=== PATIENT | male | born 1945 | race Caucasian/White ===

== ENCOUNTER 2019-04-15 10:01 | Observation (INO) | payer MEDICARE, SELFPAY ==
[2019-04-15] VITALS (11 sets, daily range): BP systolic 110–150; BP diastolic 58–90; PULSE 64–107; RESP 14–18; TEMP 36.3–37.1; O2SAT 95–100; BMI 29.6
--- NOTE | ~2019-04-15 | US_ITS ---
EXAMINATION: US carotid duplex BI DATE: 04/16/2019 11:09 INDICATION: Near syncope. Carotid atherosclerosis. TECHNIQUE: Grayscale, color Doppler, and pulsed Doppler images of the cervical carotid arteries were obtained. The degree of vessel stenosis is placed in one of the following categories: normal, <50%, 5 0-69%, >=70% but less than near-occlusion, near-occlusion, or total occlusion. Note that percent sten osis relative to normal distal artery lumen diameter is indirectly measured from velocity measurement s as described by Evans, et al. Radiology 2003; 229:340-346. COMPARISON: None. FINDINGS: RIGHT: The right common carotid artery (CCA) peak systolic velocity (PSV) is 78 cm/s. The right internal car otid artery (ICA) PSV is 144 cm/s. The right ICA end-diastolic velocity (EDV) is 41 cm/s. The right I CA/CCA PSV ratio is 1.8. Grayscale and color Doppler images yield an estimate of 50-69% diameter redu ction from plaque in the ICA. The external carotid artery (ECA) PSV is 108 cm/s. There is antegrade f low in the right vertebral artery. LEFT: The left CCA PSV is 98 cm/s. The left ICA PSV is 130 cm/s. The left ICA EDV is 27 cm/s. The left ICA/ CCA PSV ratio is 1.3. Grayscale and color Doppler images including secondary Doppler criteria yield a n estimate of <50% diameter reduction from plaque in the ICA. The ECA PSV is 98 cm/s. There is antegr elsa flow in the left vertebral artery. IMPRESSION: 1. 50-69% stenosis in the right internal carotid artery. 2. <50% stenosis in the left internal carotid artery. Reviewed, dictated and finalized at location A. INUOUS WASHER OPERATOR
--- NOTE | 2019-04-15 10:01 | ED.DIZZY ---
HPI - Dizziness General Chief Complaint: Syncope Stated Complaint: NEAR SYNCOPE Time Seen by Provider: 04/15/19 10:22 Source: patient Mode of arrival: EMS Limitations: no limitations History of Present Illness HPI Narrative: A 74 y/o male presents to the ED, via EMS, with c/o lightheadedness and a near syncopal episode. Pt states he was standing at [employer] when he didn't feel real good so he sat down. Pt then started getting really warm and diaphoretic so he laid down in the pew and then people started fanning me and saying that I looked white as a sheet. Pt was given chocolate milk and his symptoms alleviated after this. Per family, this episode lasted about 10 minutes. Pt denies syncope but states he felt like he was going to pass out. Pt ate breakfast at 7:00 AM this morning. Pt has a history of similar episodes stating that he thinks it his due to low BS but he has never had an official diagnoses. Pt's first episode occurred 7 years ago when he had a syncopal episode on an airplane. Pt saw his PCP when he returned to [facility] and had his BP medication dosage reduced and told to monitor his BS. Pt is not on any medication for DM. Pt's most recent episode before today occurred about 2 years ago. Pt notes that he had a stress test done a long time ago. He denies smoking and alcohol use. Severity: similar to previous episodes Description: near-syncope History of similar symptoms: Yes Related Data Home Medications Medication Instructions Recorded Confirmed lisinopril 40 mg PO DAILY 02/20/19 Cbd Oil 15 mg PO HS 04/15/19 aspirin 81 mg PO DAILY 04/15/19 cholecalciferol (vitamin D3) 1,000 unit PO DAILY 04/15/19 [Vitamin D3] tramadol 50 mg PO DAILY 04/15/19 Allergies Allergy/AdvReac Type Severity Reaction Status Date / Time Penicillins Allergy Unknown Unknown Verified 04/15/19 10:17 Review of Systems Review of Systems: All systems reviewed & are unremarkable except as noted in HPI and below Constitutional: Comments: Reports: lightheadedness Cardiovascular: Comments: Reports: diaphoresis Neurologic: Denies syncope [facility] Past Medical History Medical History (Updated 04/15/19 @ 12:34 by Janay Rodriguez MD) History of tremor HTN (hypertension) Kidney stones Melena Rectal polyp Seasonal allergies Sleep apnea Surgical History Surgical History H/O nasal septoplasty Hx of appendectomy Hx of tonsillectomy Family History Family History Mother Family history of Alzheimer's disease Father Family history of heart disease in male family member before age 55 Social History Social History Smoking status: Never smoker Second hand tobacco smoke exposure: No Alcohol intake: never Gender identity (if verbalized by the patient): Male Comments PCP: Dr. Childress Exam Narrative: Exam Narrative: General appearance: Well-developed, well-nourished Skin: Normal color Head: Normocephalic, nontraumatic Eyes: Clear conjunctiva ENT: Oropharynx normal, ears normal, nose normal Neck: Supple, nontender Chest and respiratory: Airway patent, no respiratory distress, no accessory muscle use Heart: Regular rate/rhythm Abdomen: Soft, nontender, no organomegaly, quiet bowel sounds Vascular: Normal peripheral pulses, normal capillary refill. Musculoskeletal: Normal range of motion, nontender back Neurologic: Alert and oriented ?3, DENTURE WAXER is normal as tested, no gross motor deficit Course Course Emergency Course: Resolved Consultations Consultation #1: Discussed case with Valerie and accepted admi
--- NOTE | 2019-04-15 10:18 | ECG_ITS ---
Measurements Intervals Sandy Rate: 64 P: -10 IA: 215 QRS: 9 QRSD: 118 T: 83 QT: 427 QTc: 442 Interpretive Statements SINUS RHYTHM WITH FIRST DEGREE AV BLOCK INTRAVENTRICULAR CONDUCTION DELAY BORDERLINE ST-T WAVE ABNORMALITY- LATERAL LEADS ABNORMAL ECG Electronically Signed On 04-15-2019 12:42:32 BANK RECONCILIATOR by Dexter Hubbard D.O.
[2019-04-15 10:29] LABS: Basophils Absolute Auto 0.1 K/mm3 (0.0-0.1); Eosinophils Absolute Auto 0.3 K/mm3 (0-0.3); Hematocrit 46.2 % (42.0-52.0); Hemoglobin 15.5 g/dL (14.0-18.0); Immature Granulocyte Absolute 0.03 K/mm3 (0.00-0.031); Immature Granulocyte Percent A 0.5 % (0-0.5); Lymphocytes Absolute Auto 1.08 K/mm3 (0.9-3.2); Lymphocytes Percent Auto 17.5 % (18.3-44.2); Mean Corpuscular HGB Conc 33.5 g/dl (32-36); Mean Corpuscular Hemoglobin 31.3 pg (26-34); Mean Corpuscular Volume 93.3 fl (80-100); Mean Platelet Volume 10.8 fl (7.4-10.4); Monocytes Absolute Auto 0.5 K/mm3 (0.1-0.6); Monocytes Percent Auto 8.3 % (2.6-8.5); Neutrophils Absolute Auto 4.2 K/mm3 (1.3-6.7); Neutrophils Percent Auto 67.7 % (45.5-73.1); Platelet Count Result 164 k/mm3 (150-375); Red Blood Count 4.95 M/mm3 (4.6-6.20); Red Cell Distribution Width 12.7 % (11.5-14.5); White Blood Count 6.2 K/mm3 (4.5-10.0)
[2019-04-15 10:41] LABS: Blood Urea Nitrogen 22 mg/dL (9-20); Calcium 10.1 mg/dL (8.4-10.2); Carbon Dioxide 26 mmol/L (22-30); Chloride 102 mmol/L (98-107); Estimated CRCL calculation 48 ml/min; Estimated Glomerular Filt Rate 59; Glucose 212 mg/dL (75-110); Potassium 4.8 mmol/L (3.4-5.0); Sodium 141 mmol/L (137-145)
--- NOTE | 2019-04-15 13:55 | PC.NURSE ---
This patient, Nithin Foster, was admitted to [address] [facility] Surg Room 313-01. Patient/family oriented to hospital policies and general routines including ID bracelet, bed and alarms, visiting hours, pain management, procedures, bathroom and other care routines, personal items, smoking policy, room service/diet, and visiting hours. Valuables list has been completed. Information on how to activate the Rapid Response Team has been discussed. Patient/Family are encouraged to report perceived risks to care and to ask questions if they do not understand what they are told or what they should do.
--- NOTE | 2019-04-15 18:53 | PM.IMHP ---
H&P: HPI History of Present Illness Chief complaint: near syncope Narrative: Nithin Foster is a 74 year old male who 8 2 pieces of bread this morning prior to going to congregational. The patient stated he has a history of diabetes but is mostly diet controlled. The patient stated he checked his blood sugar before he went to congregational and it was in the 150s. The patient made it through most of congregational services and they were on the last saw when the patient was standing up and he just felt like he was going to pass out. Patient was diaphoretic but did not have any chest pain. The patient has had a cardiac back in 2009 which required no intervention at the time. He had a stress test in 2009 which was normal with the EF of 47%. He also had a Holter monitor in 2013 which showed 1600 PVCs was 42 couplets and 1 ventricular triplet in 20 for hours. The patient recently saw the heart group for clearance for left knee arthroscopic surgery. He was cleared at home. While the patient was in congregational he felt like he was going to pass out so he sat down and then he laid down in the pew. The preacher decided to call EMS because the patient could not get out of the congregational pew. The patient was given a small glass of chocolate milk in the congregational and we came to ER his blood sugar was 212. Creatinine was normal. Was read as sinus rhythm with first-degree AV block and a right bundle branch block which is old. Date of service 04/15/2019 Review of Systems Review of Systems: All systems reviewed & are unremarkable except as noted in HPI and below Constitutional: Constitutional: Reports as per HPI and Reports no additional constitutional complaints Comments: No dizziness today but was diaphoretic. Eyes: Eyes: Reports as per HPI and Reports no additional eye complaints Comments: No problems now but had a history of eye cancer and had chemo eyedrops. ENT: Reports system reviewed and no additional complaints, except as documented and Reports Normal hearing present Cardiovascular: Cardiovascular: Reports no additional cardiovascular complaints Respiratory: Respiratory: Reports no additional respiratory complaints and Reports no additional respiratory complaints Gastrointestinal: Gastrointestinal: Reports as per HPI and Reports no additional gastrointestinal complaints Musculoskeletal: Musculoskeletal: Reports no additional musculoskeletal complaints Integumentary/Breasts: Skin/Breast: Reports system reviewed and no additional complaints, except as docu and Reports as per HPI Neurologic: Reports system reviewed and no additional complaints, except as documented, Reports as per HPI and Reports Normal hearing present Psychiatric: Psychiatric: Reports no additional psychiatric complaints and Reports as per HPI Endocrine: Endocrine: Reports no additional endocrine complaints Comments: Diet-controlled diabetes Hematologic/Lymphatic: Hematologic/Lymphatic: Reports no additional hematologic/lymphatic complaints Allergic/Immunologic: Allergic/Immunologic: Reports no additional allergic/immunologic complaints [facility] Past Medical History Medical History (Updated 04/15/19 @ 19:19 by Valerie Hammond NP) Asbestos exposure Bundle branch block Right Cancer of cornea Chemo eyedrops DM2 (diabetes mellitus, type 2) First degree AV block History of tremor HTN (hypertension) Kidney stones He passed on his own Melena Rectal polyp Polypectomy Seasonal allergies Surgical History Surgical History (Updated 04/15/19 @ 19:04 by Vlaerie Hammond NP) H/O cardiac catheterization 2010 the EF of 40-45% minimal luminal irregularities H/O nasal septoplasty Repair of left eye socket with a tube place H/O rectal polypectomy Hx of appendectomy Hx of tonsillectomy Status post arthroscopic surgery of left knee Family History Family History (Updated 04/15/19 @ 19:03 by Valerie Hammond NP) Mother Family history of Alzheimer's disease Father Family history of heart disease
[2019-04-15] MEDS: PROPRANOLOL HCL 40 MG TABLET PO (22:09)
[2019-04-15] MEDS: TRAMADOL HCL 50 MG TABLET PO (22:16)
[2019-04-15 22:22] LABS: Glucose Point of Care 142 (65-105)
[2019-04-16] VITALS (10 sets, daily range): BP systolic 114–140; BP diastolic 60–81; PULSE 67–90; RESP 18–20; TEMP 36.4–36.8; O2SAT 97–99
--- NOTE | 2019-04-16 | ECHO_ITS ---
Patient Info Name: Nithin Foster Age: 74 years : 1945 Gender: Male Ht: 69 in Wt: 200 lbs BSA: 2.12 m2 HR: 74 bpm BP: 120 / 68 mmHg Heart Rhythm: Sinus Arrhythmia Technical Quality: Good Exam Date: 04/16/2019 1:10 PM Exam Location: [facility] Pulmonary Patient Status: Inpatient Admit Date: 04/15/2019 Staff Ordering Physician: Valerie Hammond NP Psychology Intern: French Durbin RDCS Attending Provider: Jeniffer Loja PA-C Referring Physician: Stephany OLIVARES; Exam Type: CA echo dop color flow w con Study Info Indications I50.20 - Unspecified systolic (congestive) heart failure Complete two-dimensional, color flow and Doppler transthoracic echocardiogram is performed with contrast to opacify the left ventrical and to improve the deliniation of the left ventrical endocarial boarders. Strain analysis performed. Contrast/Agitated Saline Contrast/Ag. Saline: Definity Amount: 2.00 ml Administered By: Ivet Cash RN History/Risk Factors Near syncope; CAD, RBBB and AVB first degree, HTN. Summary 1. Borderline LV enlargement, normal wall thickness. Variable LV contractility, moderate LV systolic dysfunction, ejection fraction about 40%. Indeterminate diastolic dysfunction. Global longitudinal strain-GLS is abnormal at-13%. Normal structure of the valves. Unable to assess RVSP due to inadequate TR jet. Left Ventricle Left ventricular chamber dimension is normal. Left ventricular systolic function is moderately reduced, estimated at 35-40%. There is no increased left ventricular wall thickness. Left ventricular septal wall motion is normal. The left ventricular diastolic function is indeterminate. Global longitudinal strain is abnormal at -13 %. Right Ventricle Right ventricular chamber dimension is normal. Right ventricular systolic function is normal. Left Atria Left atrial chamber dimension is mildly enlarged. Right Atria Right atrial chamber dimension is normal. Aortic Valve The aortic valve is trileaflet. There is no aortic valve sclerosis. There is no aortic valve stenosis. There is no aortic valve regurgitation. Pulmonic Valve The pulmonic valve is normal. There is no pulmonic valve stenosis. There is trace pulmonic regurgitation. Mitral Valve The mitral valve has normal leaflets. There is no mitral valve stenosis. There is no mitral valve regurgitation. Tricuspid Valve The tricuspid valve leaflets are normal. There is no significant tricuspid valve stenosis. There is trace tricuspid valve regurgitation. Pericardium/Pleural The pericardium appears epicardial fat pad. There is no pericardial effusion. Aorta The aortic root size at the sinus of Valsalva is normal. The prox ascending aorta size is normal. Left Ventricular Outflow Tract Name Value Normal LVOT 2D LVOT Diameter 2.22 cm LVOT Doppler LVOT Peak Gradient 3 mmHg LVOT Mean Gradient 2 mmHg LVOT VTI 14.34 cm LVOT VTI/AV VTI Ratio
[2019-04-16 06:22] LABS: Hemoglobin A1C 7.1 % (<5.7)
[2019-04-16] MEDS: PROPRANOLOL HCL 40 MG TABLET PO (08:14)
[2019-04-16] MEDS: MELOXICAM 7.5 MG TABLET 15 MG PO (08:15)
[2019-04-16] MEDS: ASPIRIN 81 MG CHEWABLE TABLET PO (08:15)
[2019-04-16] MEDS: lisinopriL 20 MG TABLET 40 MG PO (08:15)
[2019-04-16] MEDS: CHOLECALCIFEROL 1,000 UNIT TABLET 1000 UNITS PO (08:16)
[2019-04-16 08:35] LABS: Alanine Aminotransferase 25 U/L (4-50); Albumin Level 3.9 g/dL (3.5-5.1); Alkaline Phosphatase 77 U/L (38-126); Aspartate Amino Transferase 23 U/L (17-59); Bilirubin,Total 0.7 mg/dL (0.2-1.3); Blood Urea Nitrogen 20 mg/dL (9-20); Calcium 9.5 mg/dL (8.4-10.2); Carbon Dioxide 26 mmol/L (22-30); Chloride 104 mmol/L (98-107); Estimated CRCL calculation 57 ml/min; Estimated Glomerular Filt Rate > 60; Glucose 169 mg/dL (75-110); Magnesium 1.8 mg/dL (1.6-2.3); Potassium 4.3 mmol/L (3.4-5.0); Sodium 141 mmol/L (137-145)
[2019-04-16 08:47] LABS: Thyroid Stimulating Hormone Reflex 0.982 uIU/mL (0.465-4.68)
[2019-04-16 09:39] LABS: Glucose Point of Care 188 (65-105)
[2019-04-16 12:59] LABS: Glucose Point of Care 138 (65-105)
[2019-04-16] MEDS: PERFLUTREN LIPID MICROSPHERES 1.5 ML VIAL DILUTED TO 10 ML TOTAL VOLUME IV PUSH (15:17)
[2019-04-16 17:47] LABS: Glucose Point of Care 150 (65-105)
--- NOTE | 2019-04-16 20:38 | PM.DS ---
DS: Diagnosis Admitting Diagnosis Admitting Diagnosis: Pre syncope Discharge Diagnosis (1) Near syncope: Code(s): R55 - Syncope and collapse Status: Acute Assessment and Plan: Date of Service 04/16/19: Mr. Foster is a pleasant 74yo M with history of hypertension and pre-diabetes who presented to the ED for evaluation after a near-syncopal episode at [employer]. He reported he was standing for a period of time during a song at [employer] when he began to feel light headed, so he laid down in the pew. His symptoms improved after lying for a few minutes and eating a snack. He denies loss of consciousness. He did not fall or hit his head. He noted that he has had similar episodes in the past, about once every year. At time of my exam, he reports he feels well and back at his baseline. Multiple studies were ordered at that time to include carotid dopplers, echocardiogram, and CT brain. EKG and cardiac telemetry showed mutliple PVCs, sometimes in couplets. He has seen Dr Benito in the past and has previously been evaluated with Holter monitoring. These PVCs, right bundle branch block, and 1st degree AV block have been documented in the past. He denies any chest pain or shortness of breath. He does feel these palpitations on a regular basis and has for years. Carotid dopplers showed 50-69% stenosis in the right internal carotid; < 50% stenosis in the left internal carotid artery. Explained these findings with the patient and instructed him to continue taking his 81mg ASA daily and follow up with Dr Childress regarding possibly starting statin therapy if necessary. Patient notes he was diagnosed with pre-diabetes and has not been on any medications for such. He noted that he sees an make up worker Dr Hugo Valera at [facility]. We discussed that his A1c was now 7.1 and a fasting blood sugar of 165 that he now may need to be on medications. He was agreeable to holding off on new medications at this time and discussing a plan with Dr Childress and Dr Valera at his upcoming appointments. Echocardiagram was performed but not read prior to discharge. CT brain was ordered in the morning but not able to be performed on day of discharge due to radiology scheduling. The patient was given the option to stay a second night in order to obtain his CT brain, or to discharge with orders to obtain his CT brain on an outpatient basis the following day. Mr. Foster opted to proceed with discharge since he was feeling quite well and would obtain his CT the following day, with instructions to follow up with Dr Childress. He was hemodynamically stable for discharge 04/16/19. The following results are noted after the patient's discharge: CT brain 04/17/19 - IMPRESSION: No acute intracranial findings; Chronic age related findings; Left maxillary, anterior ethmoid mucoperiosteal thickening and small amount of fluid in the left maxillary sinus. Echocardiogram 04/16/19 - SUMMARY: Borderline LV enlargement, normal wall thickness. Variable LV contractility, moderate LV systolic dysfunction, ejection fraction about 40%. Indeterminate diastolic dysfunction. Global longitudinal strain-GLS is abnormal at-13%. Normal structure of the valves. Unable to assess RVSP due to inadequate TR jet. (2) Bundle branch block: Code(s): I45.4 - Nonspecific intraventricular block Status: Chronic Assessment and Plan: Old, documented on an EKG from June 2018. No chest pain. Follow up with cardiology as needed. (3) First degree AV block: Code(s): I44.0 - Atrioventricular block, first degree Status: Chronic Assessment and Plan: Also documented on a prior EKG. (4) HTN (hypertension): Code(s): I10 - Essential (primary) hypertension Status: Chronic Assessment and Plan: His noted his blood pressure was low when EMS took it. Blood pressures stable here, no orthostasis
== END 2019-04-16 18:10 | disposition home or self-care (01) ==
LOC: ANHED 12:34 → ANH3MEDSUR 13:14
PROVIDERS: Hospitalist; Nurse Practitioner; Physician Assistant; Admitting Provider Family Medicine; Emergency Provider Emergency Medicine; PCP Family Medicine; Visit Provider Internal Medicine
DX: R55 Syncope and collapse (principal); I45.4 Nonspecific intraventricular block; I44.0 Atrioventricular block, first degree; I25.10 Atherosclerotic heart disease of native coronary artery without angina pectoris; I11.0 Hypertensive heart disease with heart failure; I50.20 Unspecified systolic (congestive) heart failure; E11.9 Type 2 diabetes mellitus without complications; I65.21 Occlusion and stenosis of right carotid artery; G89.29 Other chronic pain; M54.9 Dorsalgia, unspecified
CPT/HCPCS: 36415; 70450; 80048; 80053; 83036; 83735; 84443; 85025; 93005; 93880; 96374; 99285; A9270; C8929; G0378; Q9957

== ENCOUNTER 2019-04-17 14:12 | Outpatient (CLI) | payer MEDICARE, SELFPAY ==
--- NOTE | ~2019-04-17 | CT_ITS ---
EXAMINATION: CT brain wo con EXAM DATE: 04/17/2019 14:34 INDICATION: Syncope, collapse. TECHNIQUE: Spiral CT of the head was performed without contrast. Axial, coronal and sagittal images were reviewed. The dose-length product (DLP) for this examination was 605.33 mGy-cm. The exposure w as tailored according to patient size, and iterative reconstruction (ASIR) was used as additional dos e reduction technique. Comparison is made to prior examination from 11/10/2018. FINDINGS: There is no acute intraparenchymal hemorrhage. No evidence of intraparenchymal brain mass lesion. No evidence of acute infarction. Please note that initial head CT has limited sensitivity f or small or acute infarctions. There is mild periventricular and subcortical hypodensity, nonspecific but probably related to small vessel ischemic disease. There is moderate prominence of the sulci a nd ventricles related to cerebral atrophy. There is intracranial carotid arteriosclerosis. There a re no extra-axial collections. There is no mass effect or midline shift. The orbits are unremarkabl e. Soft tissue is unremarkable. There is mild to moderate left maxillary sinus mucoperiosteal thick ening and left anterior ethmoid mucoperiosteal thickening. Small amount of fluid in the left maxillar y sinus. IMPRESSION: 1. No acute intracranial findings. 2. Chronic age related findings. 3. Left maxillary, anterior ethmoid mucoperiosteal thickening, fluid as above. Reviewed, dictated and finalized at location A. OR TECHNICAL WRITER
== END 2019-04-17 14:13 | disposition home or self-care (01) ==
LOC: ANHIMG 14:14
PROVIDERS: PCP Family Medicine; Visit Provider Physician Assistant
DX: R55 Syncope and collapse (principal)
CPT/HCPCS: 70450

== ENCOUNTER → 2019-05-11 08:49 | Outpatient (CLI) | payer MEDICARE, SELFPAY ==
--- NOTE | ~2019-05-11 | CT_ITS ---
EXAMINATION: CT sinus wo con DATE: 05/11/2019 09:11 INDICATION: Recurrent pansinusitis TECHNIQUE: Computed tomography (CT) of the paranasal sinuses was performed without contrast. Iterativ e reconstruction technique was employed. Exam dose: 254.35 mGy-cm total exam DLP. COMPARISON: None FINDINGS: There is rightward bowing of the anterior portion of the nasal septum. The nasal turbinates are moderately prominent and relatively symmetric. Intralamellar cell of left middle nasal turbinate. Minimal hillary bullosa of both middle nasal turbinates. There is opacification of left maxillary ostium and extensive opacification of the left infundibulum. The right ostiomeatal complex is patent. There is prominent mucoperiosteal thickening of the left maxillary sinus. There are focal areas of so ft tissue thickening of the ethmoid air cells, left greater than right. The frontal sinuses and sphenoid sinuses and right maxillary sinus are normally developed and aerated . The mastoid air cells are normally developed and aerated. IMPRESSION: Rightward bowing of anterior nasal septum Intralamellar cell of left middle nasal turbinate; minimal hillary bullosa of both middle nasal turbin ates Opacified left maxillary ostium and partial opacification of left infundibulum Prominent mucoperiosteal thickening left maxillary sinus Minimal focal soft tissue thickening of the ethmoid air cells Reviewed, dictated and finalized at Location A. Reviewed, dictated and finalized at location A. IMPRESSION: Rightward bowing of anterior nasal septum Intralamellar cell of left middle nasal turbinate; minimal hillary bullosa of asher th middle nasal turbinates Opacified left maxillary ostium and partial opacification of left infundibulum Prominent mucoperiosteal thickening left maxillary sinus Minimal focal soft tissue thickening of the ethmoid air cells
== END ==
PROVIDERS: PCP Family Medicine; Visit Provider Otolaryngology
DX: J32.4 Chronic pansinusitis (principal)
CPT/HCPCS: 70486

== ENCOUNTER 2020-03-14 13:04 | Outpatient (CLI) | payer MEDICARE, SELFPAY ==
--- NOTE | ~2020-03-14 | US_ITS ---
EXAMINATION: US thyroid EXAM DATE: 03/14/2020 13:34 INDICATION: E04.9 - Nontoxic goiter, unspecified. TECHNIQUE: Multiple grayscale and Doppler images of the thyroid were obtained (by a technologist who performed the scan) and subsequently reviewed. Individual nodules and recommendations may be reporte d in accordance with TI-RADS system as designated by the 2017 ACR White Paper TI-RADS committee. The re is no prior study for comparison. FINDINGS: The right thyroid lobe measures 4.2 x 1.9 x 1.9 cm, the left measuring 4.6 x 1.9 x 1.8 cm. Mildly dif fusely heterogeneous thyroid echogenicity. There is a 3 mm right thyroid lobe nodule, not likely clin ically significant. IMPRESSION: Mild thyromegaly. Reviewed, dictated and finalized at location B. MANAGER IMPRESSION: Mild thyromegaly.
== END 2020-03-14 13:05 | disposition home or self-care (01) ==
LOC: ANHIMG 13:07
PROVIDERS: PCP Family Medicine; Visit Provider Physician Assistant Medical
DX: E04.9 Nontoxic goiter, unspecified (principal)
CPT/HCPCS: 76536

== ENCOUNTER 2020-03-25 10:38 | Outpatient (CLI) | payer MEDICARE, SELFPAY ==
--- NOTE | ~2020-03-25 | MR_ITS ---
EXAMINATION: MR brain/brain stem wo/w con DATE: 03/25/2020 11:29 INDICATION: Tremor, unspecified. TECHNIQUE: Magnetic resonance imaging (MRI) of the brain and brainstem was performed without and with 18 mL MultiHance intravenous contrast. Sequences included sagittal and axial T1-weighted FSE, axial diffusion-weighted FS EPI, axial T2*-weighted GRE, axial T2-weighted FLAIR Propeller, and axial T2-we ighted Propeller. Postcontrast sequences included axial and coronal T1-weighted FSE. Apparent diffusi on coefficient (ADC) maps were created. COMPARISON: Brain MRI 04/10/2014 FINDINGS: There is a 7 mm lesion of cortical enhancement in right frontoparietal region associated wi th a slightly larger area of increased T2-weighted signal intensity. There are scattered areas of non specific increased T2-weighted signal intensity in the cerebral white matter, which is within normal limits for the patient's age. There is no intracranial hemorrhage or acute infarct. The ventricles ar e normal in size. The orbits are normal. There is mild mucosal thickening in the ethmoid sinuses. The mastoid air cells are normal. IMPRESSION: 1. Enhancing lesion in right frontoparietal region, most likely a subacute infarct. Neoplasm such as metastatic disease is less likely. Consider brain MRI without and with contrast in 2 months. Reviewed, dictated and finalized at location A. RATOR OPERATOR IMPRESSION: 1. Enhancing lesion in right frontoparietal region, most likely a subacute infa rct. Neoplasm such as metastatic disease is less likely. Consider brain MRI wit hout and with contrast in 2 months.
[2020-03-25 11:10] LABS: Estimated Glomerular Filt Rate > 60
== END 2020-03-25 10:39 | disposition home or self-care (01) ==
PROVIDERS: PCP Family Medicine; Visit Provider Physician Assistant Medical
DX: R25.1 Tremor, unspecified (principal); F98.5 Adult onset fluency disorder; R55 Syncope and collapse; G93.9 Disorder of brain, unspecified
CPT/HCPCS: 70553; A9577

== ENCOUNTER 2020-04-17 10:30 | Outpatient (CLI) | payer MEDICARE, SELFPAY ==
--- NOTE | ~2020-04-17 | US_ITS ---
EXAMINATION: US carotid duplex BI DATE: 04/17/2020 11:17 INDICATION: Transient ischemic episode. Carotid atherosclerosis and stenosis. TECHNIQUE: Grayscale, color Doppler, and pulsed Doppler images of the cervical carotid arteries were obtained. The degree of vessel stenosis is placed in one of the following categories: normal, <50%, 5 0-69%, >=70% but less than near-occlusion, near-occlusion, or total occlusion. Note that percent sten osis relative to normal distal artery lumen diameter is indirectly measured from velocity measurement s as described by Evans, et al. Radiology 2003; [id number]:340-346. COMPARISON: 04/16/2019 FINDINGS: RIGHT: The right common carotid artery (CCA) peak systolic velocity (PSV) is 86 cm/s. The right internal car otid artery (ICA) PSV is 110 cm/s. The right ICA end-diastolic velocity (EDV) is 27 cm/s. The right I CA/CCA PSV ratio is 1.3. Grayscale images again demonstrate a visually 50-69% diameter reduction from plaque in the ICA. Peak systolic velocity measurements at the site of the earlier elevated velocitie s were unable to be obtained in the current study due to increased shadowing from the calcific plaque . The external carotid artery (ECA) PSV is 207 cm/s. There is antegrade flow in the right vertebral a rtery. LEFT: The left CCA PSV is 111 cm/s. The left ICA PSV is 108 cm/s. The left ICA EDV is 21 cm/s. The left ICA /CCA PSV ratio is 1.0. Grayscale and color Doppler images yield an estimate of <50% diameter reductio n from plaque in the ICA. The ECA PSV is 131 cm/s. There is antegrade flow in the left vertebral vamshi ry. IMPRESSION: 1. 50-69% stenosis in the right internal carotid artery. 2. <50% stenosis in the left internal carotid artery. Reviewed, dictated and finalized at location A. [employer]
== END 2020-04-17 10:31 | disposition home or self-care (01) ==
PROVIDERS: PCP Family Medicine; Visit Provider Physician Assistant Medical
DX: I65.23 Occlusion and stenosis of bilateral carotid arteries (principal)
CPT/HCPCS: 93880

== ENCOUNTER → 2020-06-13 01:38 | Outpatient (CLI) | payer MEDICARE, SELFPAY ==
[2020-06-13 19:39] LABS: SARS-CoV-2 RNA PCR Negative
== END ==
PROVIDERS: PCP Family Medicine; Visit Provider Otolaryngology
DX: Z01.812 Encounter for preprocedural laboratory examination (principal); Z20.822 Contact with and (suspected) exposure to COVID-19
CPT/HCPCS: C9803; U0003; U0005

== ENCOUNTER 2020-06-16 01:01 | Day surgery (SDC) | payer MEDICARE, SELFPAY ==
[2020-06-05 13:11] VITALS: BMI 29.5
[2020-06-16] VITALS (9 sets, daily range): BP systolic 142–155; BP diastolic 80–90; PULSE 67–73; RESP 12–20; TEMP 36.1–36.6; O2SAT 94–100; BMI 27.1
--- NOTE | 2020-06-16 06:46 | WPDANESEPPF ---
Anes - Initial Pre Proc Eval Procedure: Operation Date: 06/16/20 08:15 Proposed Procedures p Image Guided Partial Bilateral Ethmoidectomy, Possible Bilateral Total Ethmoidectomy, Possible Bilateral Sphenoidotomy, Bilateral Maxillary Antrostomy, Bilateral Turbinate Reduction, Left Adelita Bullosa Reduction, - Nelson Montes MD s Septoplasty - Nelson Montes MD Date/Time: 06/16/20 06:46 Surgeon: Nelson Montes MD Pre Op Diagnosis: acute recurrent pansinusitis Patient Data Age: 75 Gender: M Height: 1.75 m Weight: 83.2 kg Last Vital Signs Temp 36.1 C L 06/16/20 06:40 Pulse 71 06/16/20 06:40 Resp 18 06/16/20 06:40 BP 149/81 H 06/16/20 06:40 Pulse Ox 99 06/16/20 06:40 Allergies Allergy/AdvReac Type Severity Reaction Status Date / Time Penicillins Allergy Unknown N/V? Verified 06/16/20 06:26 levofloxacin [From Levaquin] AdvReac Intermediate Cramping Verified 06/16/20 06:26 of the Muscles Home Medications Medication Instructions Recorded Confirmed Type lisinopril 40 mg PO QAM 02/20/19 06/16/20 History Cbd Oil 15 mg PO HS 04/15/19 06/16/20 History aspirin 81 mg PO DAILY 04/15/19 06/16/20 History cholecalciferol (vitamin D3) 1,000 unit PO DAILY 04/15/19 06/16/20 History [Vitamin D3] acetaminophen 325 mg tablet 650 mg PO Q6H tablet 04/23/19 06/16/20 History clopidogrel 75 mg tablet 75 mg PO DAILY #30 tablet 03/25/20 06/16/20 Rx atorvastatin 40 mg PO QAM 06/05/20 06/16/20 History diphenhydramine HCl [Benadryl 25 mg PO HS 06/05/20 06/16/20 History Allergy] propranolol 40 mg BID 06/05/20 06/16/20 History Patient hx anesthesia problems: none Family hx anesthesia problems: none PMFSH Past Medical History Medical History (Updated 06/16/20 @ 06:[address]er MD) Asbestos exposure BMI 27.0-27.9,adult Bundle branch block Right Cancer of cornea Chemo eyedrops Carotid stenosis, right Dilated cardiomyopathy DM2 (diabetes mellitus, type 2) First degree AV block History of tremor HTN (hypertension) Kidney stones He passed on his own Melena Rectal polyp Polypectomy Seasonal allergies Surgical History Surgical History H/O cardiac catheterization 2009 the EF of 40-45% minimal luminal irregularities H/O nasal septoplasty Repair of left eye socket with a tube place H/O rectal polypectomy Hx of appendectomy Hx of tonsillectomy Status post arthroscopic surgery of left knee Family History Family History Mother Family history of Alzheimer's disease Father Family history of heart disease in male family member before age 55 Asbestos exposure Cancer Sibling No problems noted. Social History Social History Social History: The patient is a full code and his Mini is his durable power deputy prosecuting attorney for healthcare. Patient has 2 children. He is retired from working in the [employer] and a [employer]. Smoking status: Never smoker Second hand tobacco smoke exposure: No Alcohol intake: current Alcohol use details: STATES MAYBE 1-2 DRINKS/YEAR Substance use: current Other substance usage details: CBD at night Last use: 04/14/2019 Living arrangements: with family Additional occupation/education comments: [employer] Gender identity (if verbalized by the patient): Male Spiritual care concerns: No Agree to blood products: Yes Anes - Eval Final PreProcedure Day of Procedure 06/16/20 06:46 Patient weight: overweight Heart: regular rate and rhythm Lungs: clear to auscultation and normal air movement Airway: Mallampati scale class II Neurological: alert and oriented Last oral intake: >/= 8 hours ASA classification: IV Emergent: no Anesthetic plan: proceed Anesthesia type and monitoring: general ETT Informed Consent: The patient's anesthet
[2020-06-16] MEDS: OXYMETAZOLINE HCL 0.05% NAS 15 ML BTL (*BKC) 1 SPRAY NASAL (06:59)
--- NOTE | 2020-06-16 07:24 | PM.IMHP ---
H&P: HPI History of Present Illness Date/Time: 06/16/20 07:24 Chief Complaint: chronic sinusitis, deviated septum Review of Systems Review of Systems: All systems reviewed & are unremarkable except as noted in HPI and below [facility] Past Medical History Medical History Asbestos exposure BMI 27.0-27.9,adult Bundle branch block Right Cancer of cornea Chemo eyedrops Carotid stenosis, right Dilated cardiomyopathy DM2 (diabetes mellitus, type 2) First degree AV block History of tremor HTN (hypertension) Kidney stones He passed on his own Melena Rectal polyp Polypectomy Seasonal allergies Surgical History Surgical History H/O cardiac catheterization 2010 the EF of 40-45% minimal luminal irregularities H/O nasal septoplasty Repair of left eye socket with a tube place H/O rectal polypectomy Hx of appendectomy Hx of tonsillectomy Status post arthroscopic surgery of left knee Family History Family History Mother Family history of Alzheimer's disease Father Family history of heart disease in male family member before age 55 Asbestos exposure Cancer Sibling No problems noted. Social History Social History Social History: The patient is a full code and his Mini is his durable power assistant county attorney for healthcare. Patient has 2 children. 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 Smoking status: Never smoker Second hand tobacco smoke exposure: No Alcohol intake: current Alcohol use details: STATES MAYBE 1-2 DRINKS/YEAR Substance use: current Other substance usage details: CBD at night Last use: 04/14/2019 Living arrangements: with family Additional occupation/education comments: [employer] Gender identity (if verbalized by the patient): Male Spiritual care concerns: No Agree to blood products: Yes Meds Home Medications and Allergies Home Medications Medication Instructions Recorded Confirmed Type lisinopril 40 mg PO QAM 02/20/19 06/16/20 History Cbd Oil 15 mg PO HS 04/15/19 06/16/20 History aspirin 81 mg PO DAILY 04/15/19 06/16/20 History cholecalciferol (vitamin D3) 1,000 unit PO DAILY 04/15/19 06/16/20 History [Vitamin D3] acetaminophen 325 mg tablet 650 mg PO Q6H tablet 04/23/19 06/16/20 History clopidogrel 75 mg tablet 75 mg PO DAILY #30 tablet 03/25/20 06/16/20 Rx atorvastatin 40 mg PO QAM 06/05/20 06/16/20 History diphenhydramine HCl [Benadryl 25 mg PO HS 06/05/20 06/16/20 History Allergy] propranolol 40 mg BID 06/05/20 06/16/20 History Allergies Allergy/AdvReac Type Severity Reaction Status Date / Time Penicillins Allergy Unknown N/V? Verified 06/16/20 06:26 levofloxacin [From Levaquin] AdvReac Intermediate Cramping Verified 06/16/20 06:26 of the Muscles Vital Signs Vital Signs - 24 hr 06/16/20 06:40 Temperature 36.1 C L Pulse Rate 71 Respiratory Rate 18 Blood Pressure 149/81 H Pulse Oximetry 99 Exam Narrative: Exam Narrative: deviated septu, chronic sinusitis, turbinate hypertrophy, rest of exam wnl Assessment and Plan Assessment and plan (1) Chronic sinusitis of both maxillary sinuses: Code(s): J32.0 - Chronic maxillary sinusitis Status: Acute Assessment and Plan: Brian is here for septoplasty, turbinoplasty and maxillary antrostomy, ethmoidectomy for chronic sinusitis and deviated septum. Refer to outpt H&P for full details. r/b/a reviewed and he consents to surgery.
--- NOTE | 2020-06-16 07:25 | SUR.PREOP ---
SPOKE TO DR PELAEZ REGARDING PLAVIX. PT LAST DOSE WAS TUESDAY, 06/12 ALONG WITH ASA 81MG. OK TO PROCEED
[2020-06-16] MEDS: LACTATED RINGERS 1,000 ML 30 ML IV CONT ×2 (07:46→09:32)
--- NOTE | 2020-06-16 07:49 | WPDHPUPDATE1 ---
History and Physical Update Update Date/Time: 06/16/20 07:49 History and Physical has been reviewed, including an updated exam of the patient. There are NO changes in the patient's condition. Risks, benefits, and alternatives have been discussed and questions answered. Patient agrees to proceed with procedure.
[2020-06-16] MEDS: ceFAZolin 2 GM/D5W 50 ML 2 GM/50 ML BAG IVPB (08:08)
[2020-06-16] MEDS: LIDO 1%/EPINEPHRINE 1:100,000 50 ML VIAL INFILTRATE (08:17)
--- NOTE | 2020-06-16 09:25 | PM.PROC ---
Procedure Note - Detailed Date of procedure: 06/16/20 Pre-op diagnosis: acute recurrent pansinusitis Post-op diagnosis: same (sinusitis, deviated septum) Procedure performed: Septoplasty, bilateral inferior turbinoplasty, maxillary antrostomy, total ethmoidectomy, bilateral hillary bullosectomy Description of procedure: On the date of procedure the patient was met in the preoperative area and risk and benefits of the procedure reviewed with the patient as documented in the H&P and they elected to proceed with surgery. Patient was brought back to the operating room by the anesthesia team and underwent general endotracheal anesthesia. Once an adequate plane of anesthesia was obtained a timeout was performed to assure the patient identification the patient here to be performed were correct. They were.The patient was then prepped and draped in the normal fashion for endoscopic sinus surgery. The diffusion image guidance system was calibrated and used for the entire case. Afrin-soaked pledgets were placed in the nasal cavities bilaterally. The entire case was performed under endoscopic visualization. The right side was narrowed due to septal deviation.? Thus, septoplasty was required.? A left hemitransfixion incision was made in the left caudal septum and a mucoperichondrial flap was elevated in the usual fashion. The flap was elevated under endoscopic visualization and the remainder of the case was performed with endoscopic assistance. Using a D-knife, an incision was made through the cartilaginous septum with care to preserve the appropriate caudal and dorsal ?L-strut? of cartilage. The cartilage was then disarticulated from the bony-cartilaginous junction and the deviated cartilage was removed. Further deviated bone and cartilage was removed from the maxillary crest and posterior bony septum with care to avoid injury to the mucoperichondrial flap using a combination of dissection and Jalen-Brenda forceps. Once this was completed, the hemitransfixion incision was closed using simple interrupted 4-0 chromic suture. A quilting stitch to reapproximate the mucoperichondrial flaps was then placed using 4-0 plain gut suture on a Russ needle. Next, 1% lidocaine with 1:100,000 epinephrine was then injected into the root of the middle turbinate and lateral nasal wall on the right side. The middle turbinate was medialized and the osteomeatal complex was identified with a solo probe. There was hillary bullosa that was reduced using a freer elevator. Using a 90 degree backbiter, the uncinate process was reflected anteriorly and removed using a combination of sharp and powered dissection. The maxillary antrostomy was then created and widened by identifying the natural ostia and opening the sinus with straight tan-cut forceps, backbiter, and microdebrider. Continuing with the microdebrider, the anterior ethmoid bulla was opened. Careful dissection was carried out posteriorly, through the basal lamella and posterior ethmoid cells until the sphenoid rostrum was identified. The remaining bone fragments were removed with appropriate curved instruments and microdebrider.? Next, the left maxillary antrostomy, hillary bullosectomy and total ethmoidectomy were carried out in identical fashion with similar findings.? No clinical evidence of CSF throughout the case.? With all sinuses opened and no remaining polyp disease appreciated, novapore packing was placed in the ethmoid acvities bilaterally. Hemostasis was ensured. Lastly, the bilateral inferior turbinates were reduced submucosally using 2mm microdebrider and then outfractured with a sayer elevator. This significantly opened the airway. Young splints were then placed to secure the septum in the midline.? At this point, the procedure was concluded. Care the patient was transferred back to the anesthesia team and the patient was awoke in the operating room and transferred back to the PACU in stable condition. Nelson Montes M.D. Anesthesia: [facility]
== END 2020-06-16 11:40 | disposition home or self-care (01) ==
PROVIDERS: PCP Family Medicine; Visit Provider Otolaryngology
PROC: (CPT 30520; principal; 2020-06-16 08:15)
PROC: (CPT 30520; 2020-06-16 08:15)
DX: J01.41 Acute recurrent pansinusitis (principal); J32.0 Chronic maxillary sinusitis; J34.2 Deviated nasal septum; I45.10 Unspecified right bundle-branch block; E11.9 Type 2 diabetes mellitus without complications; I44.0 Atrioventricular block, first degree; Z87.19 Personal history of other diseases of the digestive system; I65.21 Occlusion and stenosis of right carotid artery; I10 Essential (primary) hypertension
CPT/HCPCS: 30520; 30140; 31255; 31256; 31240; 61782; A9270; C9803; J0330; J0690; J1100; J2405; J2704; J3010; J7120; U0003; U0005

== ENCOUNTER 2020-08-14 12:35 | Outpatient (CLI) | payer MEDICARE, SELFPAY ==
--- NOTE | ~2020-08-14 | MR_ITS ---
EXAMINATION: MR brain/brain stem wo/w con EXAM DATE: 08/14/2020 14:44 INDICATION: G93.9 - Disorder of brain, unspecified. Right frontal lobe lesion. Tremor in right hand. History stroke. TECHNIQUE: Magnetic resonance imaging (MRI) of the brain/brain stem obtained without contrast. Sagit avril T1, axial diffusion, gradient echo (T2*), T1, T2, FLAIR sequences obtained. Patient was then inj ected with 18 cc intravenous Multihance contrast. Axial and coronal postcontrast T1 weighted sequence s obtained. Comparison is made to prior examination from 03/25/2020. FINDINGS: There are no areas of restricted diffusion to suggest acute infarction. There is no acute hemorrhage seen on the T2*, a hemosiderin sensitive sequence. No intraparenchymal brain mass lesion. Small old left parietal lobe cortical infarction, in region of previously seen enhancement, expecte d evolution. No abnormal enhancement today. There is mild periventricular and subcortical T2/FLAIR si gnal hyperintensity, nonspecific but probably related to small vessel ischemic disease (microangiopat hy). There is mild to moderate prominence of the sulci and ventricles related to cerebral atrophy. There are no extra-axial collections. Flow voids are seen in the cerebral arteries on the T2-weigh ben sequences consistent with their expected patency. The orbits are unremarkable. Soft tissue is u nremarkable. IMPRESSION: 1. 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 2. Chronic age related findings. Reviewed, dictated and finalized at location B.
--- NOTE | ~2020-08-14 | US_ITS ---
EXAMINATION: US carotid duplex BI DATE: 08/14/2020 13:31 INDICATION: Carotid stenosis TECHNIQUE: Grayscale, color Doppler, and pulsed Doppler images of the cervical carotid arteries were obtained. The degree of vessel stenosis is placed in one of the following categories: normal, <50%, 5 0-69%, >=70% but less than near-occlusion, near-occlusion, or total occlusion. Note that percent sten osis relative to normal distal artery lumen diameter is indirectly measured from velocity measurement s as described by Evans, et al. Radiology 2003; 229:340-346. Notes: Normal: Peak systolic velocity <125 centimeters/sec and no plaque <50%. Peak systolic velocity <125 ( EDV <40; ICA/CCA PSV ratio <2.0; used these factors only a tandem lesions or low cardiac output or co ntralateral disease) 50-69 %: PSV 125-230 (EDV 40-100; ratio 2-4) >= 70% but less than near occlusion: PSV greater than 230 (EDV > 100; ratio> 4.0) Near Occlusion: PSV that is variable; markedly narrowed lumen Occlusion: Absent flow on color/spectral Doppler and no lumen on rothman scale. COMPARISON: Ultrasound dated 04/17/2020. FINDINGS: RIGHT: The right common carotid artery (CCA) peak systolic velocity (PSV) is 78 cm/s. The right internal car otid artery (ICA) PSV is 132 cm/s. The right ICA end-diastolic velocity (EDV) is 39 cm/s. The right I CA/CCA PSV ratio is 1.7. The external carotid artery (ECA) PSV is 1:30 cm/s. There is antegrade flow in the right vertebral artery. LEFT: The left CCA PSV is 112 cm/s. The left ICA PSV is 90 cm/s. The left ICA EDV is 122 cm/s. The left ICA /CCA PSV ratio is 1.1. The ECA PSV is 71 cm/s. There is antegrade flow in the left vertebral artery. IMPRESSION: 1. 50-69% stenosis in the right internal carotid artery by sonographic criteria. 2. Less than 50% stenosis in the left internal carotid artery by sonographic criteria. Reviewed, dictated and finalized at location A. IMPRESSION: 1. 50-69% stenosis in the right internal carotid artery by sonographic criteria . 2. Less than 50% stenosis in the left internal carotid artery by sonographic cr iteria.
[2020-08-14 13:43] LABS: Estimated Glomerular Filt Rate 54
== END 2020-08-14 12:36 | disposition home or self-care (01) ==
PROVIDERS: PCP Family Medicine; Visit Provider Psychiatry & Neurology Neurology
DX: R09.89 Other specified symptoms and signs involving the circulatory and respiratory systems (principal); Z86.73 Personal history of transient ischemic attack (TIA), and cerebral infarction without residual deficits; I65.23 Occlusion and stenosis of bilateral carotid arteries
CPT/HCPCS: 70553; 93880; A9577

== ENCOUNTER → 2020-09-19 06:48 | Outpatient (CLI) | payer MEDICARE, SELFPAY ==
[2020-09-19 17:52] LABS: SARS-CoV-2 RNA PCR Negative
== END ==
PROVIDERS: PCP Family Medicine; Visit Provider Physician Assistant Medical
DX: R68.89 Other general symptoms and signs (principal); Z20.822 Contact with and (suspected) exposure to COVID-19
CPT/HCPCS: C9803; U0003; U0005

== ENCOUNTER 2022-02-08 08:31 | Outpatient (CLI) | payer MEDICARE, SELFPAY ==
--- NOTE | ~2022-02-08 | MR_ITS ---
EXAMINATION: MR lumbar spine wo con DATE: 02/08/2022 09:32 INDICATION: Chronic low back pain. TECHNIQUE: Magnetic resonance imaging (MRI) of the lumbar spine was performed without intravenous con trast. Sequences included sagittal T2-weighted FSE, sagittal T2-weighted FS FSE, sagittal T1-weighted FSE, and axial T2-weighted FSE. COMPARISON: Lumbar spine MRI 07/06/2016 FINDINGS: Bone alignment is normal. There is mild chronic anterior wedging of T12 and L1 vertebral asher dies. There is mildly decreased disc height at L5-S1. The distal spinal cord signal intensity is norm al. The conus medullaris is at L1. The following disc levels are specifically discussed: L1-L2: The disc is bulging. There is mild bilateral facet joint osteoarthritis. There is mild bilater al neural foraminal stenosis. There is mild central canal stenosis. L2-L3: The disc is bulging. There is mild bilateral facet joint osteoarthritis. There is mild bilater al neural foraminal stenosis. There is mild central canal stenosis. L3-L4: The disc is bulging and has an annular fissure. There is mild bilateral facet joint osteoarthr itis. There is moderate bilateral neural foraminal stenosis. There is mild central canal stenosis. L4-L5: The disc is bulging and has an annular fissure. There is mild bilateral facet joint osteoarthr itis. There is mild right and moderate left neural foraminal stenosis. There is mild central canal st enosis. L5-S1: The disc is bulging with superimposed left central extrusion. There is mild bilateral facet tommy int osteoarthritis. There is moderate bilateral neural foraminal stenosis. There is mild central kristin l stenosis. IMPRESSION: 1. Moderate lumbar spondylosis, stable from 07/06/2016. Reviewed, dictated and finalized at location A. [employer]
== END 2022-02-08 08:32 | disposition home or self-care (01) ==
PROVIDERS: PCP Physician Assistant; Visit Provider Physician Assistant
DX: M47.896 Other spondylosis, lumbar region (principal)
CPT/HCPCS: 72148

== ENCOUNTER 2022-06-18 16:07 | Outpatient (CLI) | payer MEDICARE, SELFPAY ==
--- NOTE | ~2022-06-18 | MR_ITS ---
MRI of the cervical spine Clinical History: Cord compression Technique: Axial T2-weighted and gradient images, and sagittal T1-weighted, T2-weighted, and STIR rafat ges were acquired. Findings: There is no fracture or subluxation of the cervical spine. Vertebral bodies maintain normal height. No bone marrow signal abnormality seen. At C2-C3, there is no disc bulge or herniation. No spinal canal stenosis, cord compression, or neural foraminal narrowing. At C3-C4, there is no disc bulge or herniation. No spinal canal stenosis or cord compression. There i s probable mild bilateral neural foraminal narrowing related to facet arthropathy. At C4-C5, there is no disc bulge or herniation. No spinal canal stenosis or cord compression. There i s facet arthropathy, left worse than right, probable bilateral neural foraminal narrowing, left worse than right. At C5-C6, there is left foraminal disc osteophyte complex with associated significant narrowing of th e left neural foramen. Right neural foramen preserved. No spinal canal stenosis or cord compression. At C6-C7, there is no significant disc bulge or herniation. No spinal canal stenosis, cord compressio n, or neural foraminal narrowing. No abnormal signal seen in the spinal cord. Paravertebral soft tissues are unremarkable. Impression: Degenerative spondylosis at C3-C4, C4-C5, and C5-C6, as detailed above. No saima spinal cord compression identified. Reviewed, dictated and finalized at [facility]. Impression: Degenerative spondylosis at C3-C4, C4-C5, and C5-C6, as detailed above. No saima spinal cord compression identified.
== END 2022-06-18 16:08 | disposition home or self-care (01) ==
PROVIDERS: PCP Physician Assistant; Visit Provider Neurological Surgery
DX: R29.818 Other symptoms and signs involving the nervous system (principal); R26.89 Other abnormalities of gait and mobility; M47.892 Other spondylosis, cervical region
CPT/HCPCS: 72141

== ENCOUNTER 2024-08-29 19:55 | Emergency (ER) | payer MEDICARE, SELFPAY ==
--- NOTE | ~2024-08-29 | CT_ITS ---
CT facial & cervical spine wo Ordering provider: Brenda Ndiaye PA-C History: . fall . Comparison: None. Technique: CT of the cervical spine was performed without contrast. Sagittal and coronal reformatted images were also obtained and reviewed. Automated exposure control and iterative reconstruction jacky hnique were employed. The dose-length product was 434.24 mGy-cm. FINDINGS: VERTEBRAE: No subluxation or acute fracture. The occipital condyles are intact. DISC SPACES: Normal. Multilevel facet joint disease. Multilevel uncovertebral joint osteoarthritic ch anges. Multilevel intervertebral foraminal narrowing. PARASPINOUS SOFT TISSUES: Bilateral carotid atherosclerotic changes. IMPRESSION: No acute osseous abnormality cervical spine. CT facial & cervical spine wo Ordering provider: Brenda Ndiaye PA-C History: . fall . Comparison: None. Technique: Thin slice axial CT of the facial bones was performed without contrast. Coronal and sagit avril reformatted images were also obtained. . Automated exposure control and iterative reconstruction technique were employed. The dose-length product was 434.24 mGy-cm. FINDINGS: PARANASAL SINUSES: Bilateral maxillary and ethmoidal sinus disease. BONES: Fracture nasal bones which is most likely old. Clinical evaluation advised. ORBITS AND SUPERFICIAL SOFT TISSUES: The optic globes and orbits are normal. The superficial soft tis sues are normal. VISUALIZED MASTOIDS: Well aerated. LIMITED VISUALIZED BRAIN PARENCHYMA: Normal. IMPRESSION: Bilateral nasal bone fracture which is most likely chronic. Clinical correlation advised. Reviewed, dictated and finalized at location A. IMPRESSION: No acute osseous abnormality cervical spine. CT facial & cervical spine wo Ordering provider: Brenda Ndiaye PA-C History: . fall . Comparison: None. Technique: Thin slice axial CT of the facial bones was performed without contra st. Coronal and sagittal reformatted images were also obtained. . Automated e xposure control and iterative reconstruction technique were employed. The dose- length product was 434.24 mGy-cm. FINDINGS: PARANASAL SINUSES: Bilateral maxillary and ethmoidal sinus disease. BONES: Fracture nasal bones which is most likely old. Clinical evaluation advis ed. ORBITS AND SUPERFICIAL SOFT TISSUES: The optic globes and orbits are normal. Th e superficial soft tissues are normal. VISUALIZED MASTOIDS: Well aerated. LIMITED VISUALIZED BRAIN PARENCHYMA: Normal. IMPRESSION: Bilateral nasal bone fracture which is most likely chronic. Clinical correlatio n advised.
--- NOTE | ~2024-08-29 | CT_ITS ---
CT brain wo con Ordering provider: Brenda Ndiaye PA-C History: 79 years Male with . fall . Comparison: May 11, 2019 Technique: CT of the head without contrast. Radiation reduction technique utilized.The dose-length pr oduct was 681 mGy-cm. FINDINGS: BRAIN PARENCHYMA AND CSF SPACES: Mild leukoaraiosis and diffuse cortical atrophy. Mild atheromatous d isease. No midline shift, mass effect or hemorrhage. The brain parenchyma and CSF spaces are otherwi se normal. VISUALIZED PARANASAL SINUSES: Bilateral ethmoid sinus disease. Otherwise, Well aerated. MASTOIDS: Well aerated. BONES: The bones appear intact. Old nasal bone fractures seen. SOFT TISSUES: Visualized nasopharynx is normal. Superficial soft tissues are normal. IMPRESSION: No acute intracranial findings. Reviewed, dictated and finalized at location A.
--- NOTE | ~2024-08-29 | XR_ITS ---
XR finger 5th RT min 2V Ordering provider: Brenda Ndiaye PA-C History: . post-reduction . Comparison: None. FINDINGS: BONES: No acute fracture or dislocation. JOINT SPACES: Normal. SOFT TISSUES: Normal. IMPRESSION: No acute osseous abnormality. Reviewed, dictated and finalized at location A.
--- NOTE | ~2024-08-29 | XR_ITS ---
XR finger 5th RT min 2V Ordering provider: Brenda Ndiaye PA-C History: . PT FELL . Comparison: None. FINDINGS: BONES: No acute fracture. Posterior and medial dislocation is seen in the proximal interphalangeal tommy int of the right fifth finger. JOINT SPACES: Osteoarthritic changes of the distal interphalangeal joint. SOFT TISSUES: Normal. IMPRESSION: Posterior and medial dislocation of the proximal interphalangeal joint. No definite fractures. Reviewed, dictated and finalized at location A. IMPRESSION: Posterior and medial dislocation of the proximal interphalangeal joint. No defi nite fractures.
--- OUTSIDE RECORDS SUMMARY | 2024-08-29 19:56 | XMS_ITS | Referral Summary ---
Author Organization [facility] Address [address] [place] [address] Care Team Providers Care Marble Installation Helper Name Role Phone Kwame To Primary Care Provider Encounters Date Type Department Care Team Description 06/28/2024 Orders Only [facility] [address] [place] [id number] Leandra Anderson NP 06/28/2024 Telephone [facility] [address] [facility] [address] [place] [address] Leandra Anderson, YANA Med Refill from Last 3 Months Allergies Active Allergy Reactions Criticality Noted Date Comments Levofloxacin Unknown 01/08/2020 Penicillins Unknown Medium Topiramate Other (See comments) Low 12/20/2022 Whole body quivering Medications aspirin 81 mg tablet Take 1 tablet (81 mg total) by mouth daily Active cholecalciferol (VITAMIN D-3) 1,000 unit Take 1 tablet/capsule (1,000 Units total) by mouth daily Active acetaminophen ER (TYLENOL) 650 mg 8 hr tablet Take 1 tablet (650 mg total) by mouth 2 (two) times a day Active diphenhydramine HCl (ANTIHISTAMINE ORAL) Take 25 mg by mouth Active primidone (MYSOLINE) 50 mg tablet TAKE 2 TABLETS BY MOUTH THREE TIMES DAILY 540 tablet 3 Active Additional Information Patient taking differently: 50 mg oral 2 times daily, Reported on 04/10/2024 antiox #8/om3/dha/epa/l ut/zeax (PRESERVISION AREDS 2, OMEGA-3, ORAL) Take by mouth daily Active atorvastatin (LIPITOR) 40 mg tablet Take 1 tablet (40 mg total) by mouth daily 90 tablet 3 5 Active metFORMIN XR (GLUCOPHAGE XR) 500 mg 24 hr tablet Take 2 tablets (1,000 mg total) by mouth daily with breakfast 180 tablet 3 5 04/10/19 26 Active empagliflozin (Jardiance) 25 mg tablet Take 1 tablet (25 mg total) by mouth daily 90 tablet 3 5 04/10/19 26 Active metoprolol XL (TOPROL-XL) 50 mg extended release tabletIndication s:PVC (premature ventricular contraction) Take 1 tablet by mouth nightly 90 tablet 2 5 Active clopidogreL (PLAVIX) 75 mg tablet Take 1 tablet by mouth once daily 90 tablet 2 5 Active SITagliptin phosphate (JANUVIA) 100 mg tabletIndication s:type 2 diabetes mellitus Take 1 tablet (100 mg total) by mouth daily 30 tablet 11 5 05/04/19 26 Active OneTouch Verio test strips strip USE 1 STRIP TO CHECK GLUCOSE TWICE DAILY 200 each 3 5 Active lisinopriL (PRINIVIL,ZESTRI L) 20 mg tablet Take 1 tablet (20 mg total) by mouth daily 90 tablet 1 5 Active Active Problems Problem Noted Date Diagnosed Date Heart failure with reduced ejection fraction 11/2023 Abnormal stress test 05/19/2022 Benign essential tremor 12/23/2020 Assessment & Plan (12/07/2022 3:08 PM CDT): Mr. Nithin Foster is a 77 y.o. male, who presents for evaluation of tremor. He developed tremor in the jaw at age 65, followed by tremor in the hands, particularly the right hand. The tremor in the hands has been restricted to actions and postures. Currently, he is bothered by the tremor. His symptoms have limited the following activities: writing, feeding, drinking, using tools. He tried primidone and metoprolol without improvement. He had side effects with both medications, including sedation . He reports changes in balance, hyposmia and constipation, without RBD symptoms. There is no family history of tremor, but his mother had PD . On examination, there is predominant postural and kinetic tremor in the hands. There was a subtle rest tremor in the right arm, but no other consistent changes concerning for parkinsonism other than the changes in posture. History and examination are compatible with essential tremor (ET). We discussed disease pathophysiology and treatment strategies for ET. He could consider topiramate or gabapentin. He has a remote history of kidney stone and we discussed the relationship of kidney stones and topiramate. It is better drug because it tends to be less sedating than gabapentin. MRI-FUS and DBS could be considered if no response to medications in the future. Plan: Stop primidone. Start topiramate 25 mg 1 tablet in the morning and 1 tablet in the evening for 1 week, then 2 tablets twice a day. Make sure you keep hydrated and monitor for side effects and whether you had tremor benefit. Potential medication side effects were discussed during the encounter. Nonsustained ventricular tachycardia 08/26/2020 H/O: stroke 04/21/2020 Carotid stenosis, bilateral 04/21/2020 Mixed hyperlipidemia 01/08/2020 Dilated cardiomyopathy 07/04/2019 Near syncope 07/04/2019 Fatigue 07/04/2019 Palpitations 07/04/2019 PVC (premature ventricular contraction) 07/06/19 19 RBBB 07/05/2018 First degree AV block 07/05/2018 Essential hypertension 07/05/2018 Type 2 diabetes mellitus wit hout complication, without long-term current use of insulin 07/05/2018 Resolved Problems Problem Noted Date Diagnosed Date Resolved Date Mixed diabetic hyperlipidemi a associated with type 2 diabetes mellitus 05/27/2021 05/19/2022 Mixed diabetic hyperlipidemi a associated with type 2 diabetes mellitus 04/21/2020 08/24/2023 Hypertriglyceridemia 07/09/2018 020 Preoperative cardiovascular examination 07/05/2018 01/08/2020 H/O cardiomyopathy 07/05/2018 1 Immunizations Immunization Administration Dates Next Due Influenza, Quadrivalent, Hig h Dose, Preservative Free, Intrr 11/28/2019 Social History Tobacco Use Types Packs/Day Years Used Date Smoking Tobacco: Never Smokeless Tobacco: Never Tobacco Cessation:Counseling Given: Not Answered Alcohol Use Standard Drinks/Week Comments Not Currently 0 (1 standard drink = 0.6 oz pur e alcohol) Sex and Gender Information Value Date Recorded Sex Assigned at Not on file Legal Sex Male 9:18 PM METAL REED TUNER Gender Identity Male 07/13/2018 10:16 AM CDT Sexual Orientation Not on file Occupation Industry Job Start Date Job End Date Retired Not on file Not on file Not on file Last Filed Vital Signs Vital Sign Reading Time Taken Comments Blood Pressure 118/72 04/10/2024 11:34 AM METAL REED TUNER Pulse 94 04/10/2024 11:34 AM METAL REED TUNER Temperature 36.3 C (97.3 F) 03/31/2020 9:28 AM METAL REED TUNER Respiratory Rate 17 07/04/2019 8:38 AM CDT Oxygen Saturation 96% 04/10/2024 11:34 AM METAL REED TUNER Inhaled Oxygen Concentration - - Weight 84.4 kg (186 lb) 04/10/2024 11:34 AM METAL REED TUNER Height 175.3 cm (5' 9) 04/10/2024 11:34 AM METAL REED TUNER Body Mass Index 27.47 04/10/2024 11:34 AM METAL REED TUNER Plan of Treatment Not on file Procedures Procedure Name Priority Date/Time Associated Diagnosis Comments POCT HEMOGLOBIN A1C Routine 04/10/2024 1 1:53 AM METAL REED TUNER Type 2 diabetes mellitus without complication, without long-term current use of insulin (HCC) POCT LIPID PANEL Routine 03/03/2022 3:00 PM METAL REED TUNER Type 2 diabetes mellitus without complication, without long-term current use of insulin (HCC) Mixed hyperlipidemia COMPREHENSIVE METABOLIC PANEL Routine 05/20/2020 11:34 AM CDT Type 2 diabetes mellitus without complication, without long-term current use of insulin (HCC) Hypertension associated with diabetes (HCC) Mixed hyperlipidemia from Last 3 Months or Most Recently Relevant to Health Maintenance Results * POCT hemoglobin A1c (04/10/2024 11:53 AM METAL REED TUNER) Hemoglobin A1C, POC 8.3 4.0 - 5.6 % Blood 04/10/2024 11:5 3 AM METAL REED TUNER Hugo Valera MD POINT OF CARE TEST ORDER ZENON Final Result * POCT lipid panel (03/03/2022 3:00 PM METAL REED TUNER) Pathologist [facility] Cholesterol, POC <100 mg/dL HDL, POC 399 mg/dL Triglycerides, POC 117 mg/dL LDL Cholesterol POC n/a mg/dL Chol/HDL Ratio, POC n/a Non-HDL Cholesterol, POC n/aa mg/dL Capillary blood 03/03/2022 3 :00 PM METAL REED TUNER Hugo Valera MD POINT OF CARE TEST ORDER ZENON Final Result * (ABNORMAL) Comprehensive metabolic panel (05/20/2020 11:34 AM CDT) Pathologist [facility] Glucose 156(H) 65 - 99 mg/dL [facility] - 01 BUN 16 8 - 27 mg/dL [facility] - 01 Creatinine, Serum 1.00 0.76 - 1.27 mg/dL [facility] - 01 eGFR If NonAfricn Am 73 >59 mL/min/1.7 3 [facility] - 01 eGFR If Africn Am 85 >59 mL/min/1.7 3 [facility] - 01 BUN/creat ratio 16 10 - 24 [facility] - 01 Sodium 145(H) 134 - 144 mmol/L [facility] - 01 Potassium, sr 4.4 3.5 - 5.2 mmol/L [facility] - 01 Chloride 109(H) 96 - 106 mmol/L [facility] - 01 CO2 22 20 - 29 mmol/L [facility] - 01 Calcium 9.5 8.6 - 10.2 mg/dL [facility] - 01 Protein, sr 6.8 6.0 - 8.5 g/dL [facility] - 01 Albumin 4.3 3.7 - 4.7 g/dL [facility] - 01 Globulin, Total 2.5 1.5 - 4.5 g/dL [facility] - 01 A/G Ratio 1.7 1.2 - 2.2 [facility] - 01 Bilirubin, Total 0.5 0.0 - 1.2 mg/dL [facility] - 01 Alk phos 85 39 - 117 IU/L [facility] - 01 AST 24 0 - 40 IU/L [facility] - 01 ALT 27 0 - 44 IU/L [facility] - 01 Blood specimen (specimen) 05/20/2020 11:34 AM CDT 05/20/2020 Narrative [facility] - 05/21/2020 6:10 AM CDT Performed at: 01 - [facility] [address] [id number] Buggy Man: Prosper Martino PhD, Phone: [phone] Hugo Valera MD LAB BLOOD ORDERABLES Fin al Result [facility] - 01 from Last 3 Months or Most Recently Relevant to Health Maintenance [place] [address] [place] [address] [facility] MEDICARE T MEDICARE AETNA MEDICARE AETNA MEDICARE Care Teams Marble Installation Helper Relationship Specialty Start Date End Date Kwame To PA [address] [facility] [address] [place] [address] PCP - General Physician Headline Writer 03/03/22
--- OUTSIDE RECORDS SUMMARY | 2024-08-29 19:56 | XMS_ITS | Clinical Summary ---
Author Organization [facility] Address [address] [place] [address] Care Team Providers Care Welder Assistant Name Role Phone Kwame To Primary Care Provider Allergies Active Allergy Reactions Criticality Noted Date [...] examination 07/05/2018 01/08/2020 H/O cardiomyopathy 07/05/2018 1 Encounters Date Type Department Care Team Description 06/28/2024 Orders Only [facility] [address] [facility] [address] [facility] [place] [address] Leandra Anderson NP 06/28/2024 Telephone [facility] [address] [facility] [address] [facility] [place] [address] Leandra Anderson, YANA Med Refill from Last 3 Months Immunizations Immunization Administration Dates Next Due Influenza, Quadrivalent, Hig h Dose, Preservative Free, Intrr 11/28/2019 Surgical History Surgery Date Site/Laterality Comments TONSILLECTOMY APPENDECTOMY Medical History Medical History Date Comments Hypertension Diabetes mellitus (HCC) Skin cancer Eye cancer (HCC) 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 Asbestos exposure Family History Medical History Relation Name Comments Cancer Father Heart disease Mother Parkinsonism Mother Dementia Neg Hx Tremor Neg Hx Relation Name Status Comments Father Mother (Age 85) Social History Tobacco Use Types Packs/Day Years Used Date Smoking Tobacco: Never Smokeless Tobacco: Never Tobacco Cessation:Counseling Given: Not Answered Alcohol Use Standard Drinks/Week Comments Not Currently 0 (1 standard drink = 0.6 oz pur e alcohol) Sex and Gender Information Value Date Recorded Sex Assigned at Not on file Legal Sex Male 9:18 PM DRY WALL FINISHER Gender Identity Male 07/13/2018 10:16 AM CDT Sexual Orientation Not on file Occupation Industry Job Start Date Job End Date Retired Not on file Not on file Not on file Obstetrics History Last Filed Vital Signs Vital Sign Reading Time Taken Comments Blood Pressure 118/72 04/10/2024 11:34 AM DRY WALL FINISHER Pulse 94 04/10/2024 11:34 AM DRY WALL FINISHER Temperature 36.3 C (97.3 F) 03/31/2020 9:28 AM DRY WALL FINISHER Respiratory Rate 17 07/04/2019 8:38 AM CDT Oxygen Saturation 96% 04/10/2024 11:34 AM DRY WALL FINISHER Inhaled Oxygen Concentration - - Weight 84.4 kg (186 lb) 04/10/2024 11:34 AM DRY WALL FINISHER Height 175.3 cm (5' 9) 04/10/2024 11:34 AM DRY WALL FINISHER Body Mass Index 27.47 04/10/2024 11:34 AM DRY WALL FINISHER Plan of Treatment Health Maintenance Due Date Last Done Comments Albumin Creatinine Ratio, Urine 1945 Fall Risk Assessment 1945 Hepatitis C Screening 1945 Dilated Eye Exam 1945 Foot Exam 1945 DTaP/Tdap/Td Vaccine (1 - Tdap) 1956 Hepatitis B Screening 1963 Zoster Vaccine (1 of 2) 1995 Well Visit 65+ 2010 Pneumococcal vaccine 65+ (2 of 2 - PCV) 01/08/2012 01/07/2011 eGFR 05/20/2021 05/20/2020 Lipid Panel 03/03/2023 03/03/2022, 05/30, 12/23/2020, Additional history exists Covid-19 Vaccine (2023-2 5 season) 2023 12/10/2020, 05/17/2020, 04/24/2020 Depression Screening 12/08/2023 12/07/2022 Hemoglobin A1C 10/08/2024 04/10/2024, 06/2 07/2023, 01/13/2023, Additional history exists Influenza Vaccine (Season Ended) 2024 11/20/2020, 11/28/2019, 12/09/2018, Additional history exists Procedures Procedure Name Priority Date/Time Associated Diagnosis Comments POCT HEMOGLOBIN A1C Routine 04/10/2024 1 1:53 AM DRY WALL FINISHER Type 2 diabetes mellitus without complication, without long-term current use of insulin (HCC) POCT LIPID PANEL Routine 03/03/2022 3:00 PM DRY WALL FINISHER Type 2 diabetes mellitus without complication, without long-term current use of insulin (HCC) Mixed hyperlipidemia COMPREHENSIVE METABOLIC PANEL Routine 05/20/2020 11:34 AM CDT Type 2 diabetes mellitus without complication, without long-term current use of insulin (HCC) Hypertension associated with diabetes (HCC) Mixed hyperlipidemia from Last 3 Months or Most Recently Relevant to Health Maintenance Results * POCT hemoglobin A1c (04/10/2024 11:53 AM DRY WALL FINISHER) Hemoglobin A1C, POC 8.3 4.0 - 5.6 % Blood 04/10/2024 11:5 3 AM DRY WALL FINISHER Hugo Valera MD POINT OF CARE TEST ORDER ZENON Final Result * POCT lipid panel (03/03/2022 3:00 PM DRY WALL FINISHER) Cholesterol, POC <100 mg/dL HDL, POC 399 mg/dL Triglycerides, POC 117 mg/dL LDL Cholesterol POC n/a mg/dL Chol/HDL Ratio, POC n/a Non-HDL Cholesterol, POC n/aa mg/dL Capillary blood 03/03/2022 3 :00 PM DRY WALL FINISHER Hugo Valera MD POINT OF CARE TEST ORDER ZENON Final Result * (ABNORMAL) Comprehensive metabolic panel (05/20/2020 11:34 AM CDT) [facility] Glucose 156(H) 65 - 99 mg/dL [facility] [...] - 05/21/2020 6:10 AM CDT Performed at: [address] [place] [id number] Fishing Rod Marker: Prosper Martino PhD, Phone: [phone] Hugo Valera MD LAB BLOOD ORDERABLES Fin al Result [facility] - 01 from Last 3 Months or Most Recently Relevant to Health Maintenance Insurance [facility] MEDICARE [facility] MEDICARE [facility] MEDICARE AETNA MEDICARE Care Teams Welder Assistant Relationship Specialty Start Date End Date Kwame To PA [address] [facility] [address] [place] [address] PCP - General Physician Auto Machinist 03/03/22
--- OUTSIDE RECORDS SUMMARY | 2024-08-29 19:56 | XMS_ITS | Clinical Summary ---
Author Organization [facility] Address [address] [place] [address] Care Team Providers Care Display And Banner Designer Name Role Phone Jacky Childress MD Primary Care Provider [phone] Jan Vizcarra MD Unavailable [phone] Source Comments [facility],non-owned Affiliates and Associated Physician Practices is amultiple site organization consisting of ambulatory clinics and hospital sitesin [place], [place], [place] and [place]. This disclosure is being madepursuant to the Care Everywhere program and may not contain all information available regarding this patient. Last updated 17.[facility] Allergies Active Allergy Reactions Criticality Noted Date Comments Penicillins Unknown 02/13/2015 Medications * Be aware that medications may not be up to date on this document. Alwaysverify current medications with the patient. lisinopril (PRINIVIL; ZESTRIL) 20 MG tablet Take 20 mg by mouth once daily Active aspirin (ASPIRIN) 81 MG tablet Take 81 mg by mouth once daily Active Multiple Vitamin (MULTI VITAMIN DAILY PO) Active VITAMIN D, CHOLECALCIFEROL, PO Active meloxicam (MOBIC) 15 MG tablet Take 15 mg by mouth once daily Active traMADol (ULTRAM) 50 MG tablet Take 50 mg by mouth every 6 hours as needed for Pain Active Active Problems Problem Noted Date Diagnosed Date Eyelid laceration, canaliculus, left, initial en counter 11/17/2018 Stenosis, spinal, lumbar 02/13/2015 Immunizations Immunization Administration Dates Next Due INFLUENZA VACCINE, HIGH-DOSE , QUADR. (FLUZONE HIGH-DOSE QUADRIVALENT; 65Y+), 0.7 ML (HD-IIV4) 11/28/2019 Family History Medical History Relation Name Comments Heart Failure Mother Hypertension Mother Relation Name Status Comments Brother Alive Father Mother Social History Tobacco Use Types Packs/Day Years Used Date Smoking Tobacco: Never Smokeless Tobacco: Never Alcohol Use Standard Drinks/Week Comments No 0 (1 standard drink = 0.6 oz pur e alcohol) Sex and Gender Information Value Date Recorded Sex Assigned at Not on file Legal Sex Male 3:02 PM SLIP COVER MAKER Gender Identity Not on file Sexual Orientation Not on file Occupation Industry Job Start Date Job End Date RETIRED Not on file Not on file Not on file Last Filed Vital Signs Vital Sign Reading Time Taken Comments Blood Pressure 155/70 11/10/2018 9:53 PM CDT Pulse 75 11/10/2018 9:53 PM CDT Temperature 36.8 C (98.3 F) 11/10/2018 9:53 PM CDT Respiratory Rate 18 11/10/2018 9:53 PM CDT Oxygen Saturation 99% 11/10/2018 9:53 PM CDT Inhaled Oxygen Concentration - - Weight 90.7 kg (200 lb) 11/10/2018 9:53 PM CDT Height 175.3 cm (5' 9) 11/10/2018 9:53 PM CDT Body Mass Index 29.53 11/10/2018 9:53 PM CDT Plan of Treatment Health Maintenance Due Date Last Done Comments DTAP/TDAP/TD VACCINES (1 - Tdap) 1964 PNEUMOCOCCAL VACCINE 50+ (1 of 1 - PCV) 1995 ZOSTER VACCINE (1 of 2) 1995 Respiratory Syncytial Virus (RSV) Vaccine Pt: or over 60 yrs (1 - 1-dose 75+ series) 2020 COVID-19 VACCINE ( - 2023-2 5 season) 2023 DEPRESSION SCREENING 02/29/2024 INFLUENZA VACCINE (Season Ended) 2024 11/28/19 20 HEPATITIS B VACCINE Aged Out No longe r eligible based on patient's age to complete this topic HIB VACCINE Aged Out No longer eligi ble based on patient's age to complete this topic HPV VACCINE Aged Out No longer eligi ble based on patient's age to complete this topic MENINGOCOCCAL (Group B) VACC INE SHARED DECISION-MAKING Aged Out No longer eligibl e based on patient's age to complete this topic MENINGOCOCCAL GROUPS A/C/Y/W VACCINE Aged Out No longer eligible b ased on patient's age to complete this topic Insurance [facility] MANAGED MEDICARE ADV Care Teams Display And Banner Designer Relationship Specialty Start Date End Date Jacky Childress MD [address] [place] [address] PCP - General Family Medicine 01/14/15 [place] [address] [address] [facility] [address] [place] [address] Orthopedic Surgery 02/13/15
--- OUTSIDE RECORDS SUMMARY | 2024-08-29 19:56 | XMS_ITS | Continuity of Care Document ---
Author Organization [facility] Address [address] [place] [address] Phone Care Team Providers Care Product Sales Representative Name Role Phone Hugo Monk MD Unavailable Unavailable Allergies, Adverse Reactions, Alerts Substance Reaction Status Criticality Penicillins Unknown Active No Information Medications Medication Instructions Dosage Effective Dates (start - stop) Status Comments Valium 10 mg tablet take 1 tablet by oral route 1 to 2 hours prior to procedure - Active hydrocodone 5 mg-acetaminophen 325 mg tablet take 1-2 tablet 1 hour prior to procedure and every 4-6 hours PRN - Active Mobic 15 mg tablet take 1 tablet by oral route every day - Active propranolol ER 80 mg capsule,24 hr,extended release take 1/2 capsule by oral route every day - Active Aspirin Low Dose 81 mg tablet,delayed release take 1 tablet by oral route every day 81 MG - Active tramadol 50 mg tablet take 1 tablet by oral route every day - Active Epidiolex 100 mg/mL oral solution - Active LISINOPRIL (unknown strength) Not Available - Active Procedures Procedure Date POSTOP FOLLOW-UP VISIT POSTOP FOLLOW-UP VISIT KNEE ARTHROSCOPY/SURGERY OFFICE/OUTPATIENT VISIT EST OFFICE/OUTPATIENT VISIT EST OFFICE/OUTPATIENT VISIT EST OFFICE/OUTPATIENT VISIT EST POSTOP FOLLOW-UP VISIT OFFICE/OUTPATIENT VISIT EST OFFICE/OUTPATIENT VISIT NEW OFFICE CONSULTATION Advance Directives Directive Yes / No Effective Date File Name No Information Encounters Encounter Description Practice Location Reason(s) For Visit Diagnoses Date Provider Providers Copied on Encounter [facility], [address] [address], [place], [address], [place] tel:[phone] [facility] Primary osteoarthritis of left knee 9 Aleshia Arias. [address] [place] [address], [id number] . tel: [phone] [facility], [address] [place] [address], [place], [address], [place] tel:[phone] [facility] Primary osteoarthritis of left knee 9 Aleshia Arias. [address] [place] [address], [id number] . tel: [phone] [facility], [address] [place] [address], [place], [address], [place] tel:[phone] [facility] Blood tests prior to treatment or procedure 9 Aleshia Arias. [address] [place] [address], [id number] . tel: [phone] [facility], [address] [place] [address], [address], [place] tel:[phone] [facility] tear of medial meniscus, current injury, left knee, initial encounter 9 Aleshia Arias. [address] [place] [address], [id number] . tel: [phone] OFFICE/OUTPAT IENT VISIT EST [facility], [address] [place] [address], [place], [address], [place] tel:[phone] [facility] Primary osteoarthritis of left knee May-0 9 Parker Colvin. [address], [place], [place], [id number] . tel: [phone] OFFICE/OUTPAT IENT VISIT EST [facility], [address] [place] [address] [address], [place], [address], [place] tel:[phone] [facility] Primary osteoarthritis of left knee 9 Parker Colvin. [address], [place], [place], [id number] . tel: [phone] OFFICE/OUTPAT IENT VISIT EST [facility], [address] [place] [address], [address], [place] tel:[phone] [facility] Arthralgia of lumbar spineSpondylos is of lumbosacral region without myelopathy or radiculopathy 7 Alexandru Luther. [address] [place], [place], [id number] . tel: [phone] OFFICE/OUTPAT IENT VISIT [facility], [address] [place] [address], [address], [place] [phone] [facility] Arthralgia of lumbar spinePrimary osteoarthritis of lumbar spine Fe 7 Alexandru Luther. [address] [place] [address], [id number] . tel: [phone] [facility], [address] [place] [address], [address], [place] tel:[phone] [facility] Primary osteoarthritis of lumbar spineArthralgi a of lumbar spine 7 Alexandru Luther. [address] [place] [address], [id number] . tel: [phone] Referring Provider: Ashkan Horvath, [address] [place] [address], [id number] . tel:[phone] [facility], [address] [place] [address], [address], [place] [phone] [facility] No Information 6 Alexandru Luther. [address] [place] [address], [id number] . tel: [phone] OFFICE/OUTPAT IENT VISIT EST [facility], [address] [place] [address], [address], [place] tel:[phone] [facility] Arthralgia of lumbar spinePrimary osteoarthritis of lumbar spine 6 Alexandru Guerreroel. [address] [place] [address], [id number] . tel:[phone] OFFICE/OUTPAT IENT VISIT [facility], [address] [place] [address], [id number], tel:[phone] [facility] low back pain (chief complaint) Arthralgia of lumbar spinePrimary osteoarthritis of lumbar spine 6 Alexandru Luther. [address] [place] [address], [id number] . tel:[phone] Referring Provider: Santana Chaudhary, [address] [place] [address], [id number] . tel:[phone] OFFICE CONSULTATION [facility], [address] [place] [address], [address], tel:[phone] [facility] lumbar (chief complaint) Degeneration of lumbosacral intervertebral disc 6 Eusebia Dillon. [address] [place] [address], [id number] . tel:[phone] Referring Provider: Hugo Castellanos, [address] [place] [address], [id number] . tel:[phone] Family History Family Member Type Diagnosis Age At Onset Son Problem (finding) Alive and well Brother Problem (finding) Alive and well Payers Payer name Insurance type Covered libertarian ID Authoriza tion(s) [facility] Group Medicare Advantage [place] [id number] Social History Type Description Quantity Date Captured Comments Alcohol Use Details Unknown Caffeine Use Details Unknown Tobacco Use Status No Information Smoking Status No Information Sex Male Chief Complaint And Reason For Visit No Information Reason For Referral Reason For Referral No Information Plan Of Treatment Date Type Action Status Referral Ordered: MRI ANY JT LXTR C-MATRL LT knee Appointment date/timeframe: 05/25/2018 ordered Referral Ordered: DESTROY LUMB/SAC FACET JNT Appointment date/timeframe: 03/04/2016 ordered Referral Ordered: RADEX SPI LUMBOSAC 2/3 VIEWS ordered Future Order: Lab Order CBC w/di ff ([id number]), Ordered on: Ordered Future Order: Lab Order Comprehe nsive Metabolic Panel ([id number]), Ordered on: Ordered History Of Present Illness Encounter Date Complaint History Of Prese nt Illness low back pain lumbar Functional Status Date Functional Assessmen t No Information Instructions Date Instruction Additional Infor mation Activity as tolerated. Related t o Primary osteoarthritis of left knee Apply ice as instructed. Related to Primary osteoarthritis of left knee Activity as tolerated. Related t o Primary osteoarthritis of left knee Apply ice as instructed. Related to Primary osteoarthritis of left knee Activity as tolerated. Related t o Primary osteoarthritis of left knee Activity as tolerated. Related t o Arthralgia of lumbar spine Avoid prolonged bed rest. Relate d to Arthralgia of lumbar spine Take medication as prescribed. R elated to Degeneration of lumbosacral intervertebral disc Avoid prolonged bed rest. Relate d to Degeneration of lumbosacral intervertebral disc Activity as tolerated. Related t o Degeneration of lumbosacral intervertebral disc Assessments Type Assessment Date assessment Primary osteoarthritis of left k nee Patient Care Teams Name Effective Dates (start - stop) Status Members No Information
--- OUTSIDE RECORDS SUMMARY | 2024-08-29 19:56 | XMS_ITS | Encounter Summary ---
Author Organization [facility] Address [address] [facility] [place] [address] Care Team Providers Care Trimmer Buffing Wheel Name Role Phone Jacky Childress MD Primary Care Provider [phone] Jan Vizcarra MD Unavailable Encounter Details Date Type Department Care Team (Late st Contact Info) Description 11/11/2018 Ophth Exam [facility] [address] [place] [address] Barbie Mims MD No info available Social History Tobacco Use Types Packs/Day Years Used Date Smoking Tobacco: Never Smokeless Tobacco: Never Alcohol Use Standard Drinks/Week Comments No 0 (1 standard drink = 0.6 oz pur e alcohol) Sex and Gender Information Value Date Recorded Sex Assigned at Not on file 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 Gender Identity Not on file Sexual Orientation Not on file Occupation Industry Job Start Date Job End Date RETIRED Not on file Not on file Not on file documented as of this encounter Plan of Treatment Not on file documented as of this encounter Visit Diagnoses Not on filedocumented in this encounter Care Teams Trimmer Buffing Wheel Relationship Specialty Start Date End Date Jacky Childress MD [address] [place] [address] PCP - General Family Medicine 01/14/15 [place] [id number] [place] [address] Orthopedic Surgery 02/13/15 documented as of this encounter
--- OUTSIDE RECORDS SUMMARY | 2024-08-29 19:57 | XMS_ITS | Clinical Summary ---
Author Organization [employer] [address] Address [address] [place] [address] Care Team Providers Care Employee Counselor Name Role Phone Unavailable Primary Care Provider Unavailabl e Allergies Active Allergy Reactions Criticality Noted Date Comments Levofloxacin Nausea and Vomiting Low 01/08/2020 Penicillins Nausea and Vomiting Medium 02/13/2015 Topiramate Shortness of Breath/Wheezing High 12/20/2022 Whole body quivering Medications lisinopriL (PRINIVIL) 20 mg tablet Take 20 mg by mouth daily. Active empagliflozin (JARDIANCE) 25 mg tablet Take 25 mg by mouth daily. 04/10/2024 Active SITagliptin phosphate (JANUVIA) 100 mg Tablet Take 100 mg by mouth daily. 05/03/2024 Active atorvastatin (LIPITOR) 40 mg tablet Take 40 mg by mouth daily. 03/28/2024 Active primidone (MYSOLINE) 50 mg tablet TAKE 2 TABLETS BY MOUTH IN THE MORNING AND 4 IN THE EVENING Active clopidogreL (PLAVIX) 75 mg Tablet Take 75 mg by mouth daily. 04/10/2024 Active metoprolol succinate (TOPROL XL) 50 mg Extended Release 24 hour tablet Take 50 mg by mouth daily at bedtime. 04/10/2024 Active acetaminophen (TYLENOL ARTHRITIS) 650 mg Extended Release tablet Take 650 mg by mouth 2 times daily. Active cholecalciferol , Vitamin D3, (VITAMIN D3) 25 mcg (1,000 unit) Capsule Take 1,000 Units by mouth daily. Active CYANOCOBALAMIN, VITAMIN B-12, ORAL Take by mouth. Active cetirizine (ZyrTEC) 5 mg tablet Take 5 mg by mouth daily. Active Active Problems No known active problems Encounters Date Type Department Care Team Description 08/14/2024 External Device Data [facility]STRACTION Provider, Abstract 08/02/2024 Telephone [facility] [address] [place] [address] Kwame To PA-C Clinical Consult Before Scheduling 07/24/2024 External Device Data [facility]STRACTION Provider, Abstract 07/18/2024 External Device Data [facility] Provider, Abstract 07/17/2024 External Device Data [facility] Provider, Abstract from Last 3 Months Immunizations Immunization Administration Dates Next Due INFLUENZA VACCINE HIGH DOSE QUADRIVALENT 65 YR U P PF IM 11/28/2019 INFLUENZA VACCINE HIGH DOSE TRIVALENT SPLIT VIRUS, (65 YR UP), 0.5ML (PF), IM 11/29/2023 Family History Medical History Relation Name Comments Alzheimer's Disease Father No Known Problems Maternal Grandfather No Known Problems Maternal Grandmother Lung Cancer Mother Stroke Paternal Grandfather No Known Problems Paternal Grandmother Relation Name Status Comments Father Maternal Grandfather Maternal Grandmother Mother Paternal Grandfather Paternal Grandmother Social History Tobacco Use Types Packs/Day Years Used Date Smoking Tobacco: Never Smokeless Tobacco: Never Tobacco Cessation:Counseling Given: Not Answered Alcohol Use Standard Drinks/Week Comments Not Currently 0 (1 standard drink = 0.6 oz pur e alcohol) Sex and Gender Information Value Date Recorded Sex Assigned at Not on file Legal Sex Male 11:10 AM CDT Gender Identity Not on file Sexual Orientation Not on file Last Filed Vital Signs Vital Sign Reading Time Taken Comments Blood Pressure 112/60 05/18/2024 1:59 PM CDT Pulse 74 05/18/2024 1:59 PM CDT Temperature 36.6 C (97.9 F) 05/18/2024 1:59 PM CDT Respiratory Rate - - Oxygen Saturation 95% 05/18/2024 1:59 PM CDT Inhaled Oxygen Concentration - - Weight 83.9 kg (185 lb) 05/18/2024 1:59 PM CDT Height 168.9 cm (5' 6.5) 05/18/2024 1:59 PM CDT Body Mass Index 29.41 05/18/2024 1:59 PM CDT Plan of Treatment Upcoming Encounters Date Type Department Care Team (Late st Contact Info) Description 11/21/2024 11:40 AM CDT Office Visit [facility] [address] [place] [id number] Kwame To PA-C [address] [place] [address] Health Maintenance Due Date Last Done Comments DIABETES ANNUAL FOOT EXAM 1963 DIABETES ANNUAL RETINAL EXAM 1963 DIABETES MICROALBUMIN ANNUAL SCREEN 1963 LDL CHOLESTEROL ANNUAL 1963 DTAP/TDAP/TD VACCINES (1 - Tdap) 1964 PNEUMOCOCCAL VACCINE 50+ YEA RS (1 of 2 - PCV) 1964 ZOSTER VACCINE (1 of 2) 1995 RSV VACCINE (60+ or ) (1 - 1-dose 75+ series) 2020 DIABETES HBA1C Q 6 MONTHS 10/08/2024 04/10/2024, INFLUENZA VACCINE Completed 11/29/2023, 11/28/2019 Insurance [facility]
--- OUTSIDE RECORDS SUMMARY | 2024-08-29 19:57 | XMS_ITS | Continuity of Care Document ---
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 Name Role Phone Chilo PINA FACS, Quinton Unavailable Unavailab le Allergies, Adverse Reactions, Alerts Substance Reaction Status Criticality levofloxacin Active No Information Penicillins Active No Information Medications Medication Instructions Dosage Effective Dates (start - stop) Status Comments Restasis 0.05 % eye drops in a dropperette instill 1 drop by ophthalmic route every 12 hours into affected eye(s) 1.00 drop - Active day supply-Brand name AREDS 2 ORAL CAPSULE one tablet twice daily - Active Lisinopril 20 mg Tab take 1 tablet (20MG) by ORAL route every day 20 MG - Active Jardiance 10 mg tablet take 1 tablet by oral route every day in the morning 10 MG - Active metoprolol succinate ER 50 mg tablet,extended release 24 hr take 1 tablet by oral route every day 50 MG - Active Tylenol Arthritis Pain 650 mg tablet,extended release take 2 tablet by oral route every 8 hours as needed swallowing whole with water. Do not break, crush, dissolve and/or chew. 1300 MG - Active vitamin B12 1,000 mcg-folic acid 400 mcg sublingual lozenge once daily - Active primidone 50 mg tablet take 5 tablet by oral route 3 times every day 250 MG - Active atorvastatin 40 mg tablet take 1 tablet by oral route every day 40 MG - Active clopidogrel 75 mg tablet take 1 tablet by oral route every day 75 MG - Active Vitamin D3 25 mcg (1,000 unit) capsule 1 tablet by mouth once a day - Active Aspirin Low Dose 81 mg tablet,delayed release take 1 tablet by oral route every day 81 MG - Active Procedures Procedure Date No Charge [facility] Fundus Photos 024 Office/outpatient Visit, Est Fundus Photography W/ Report No Charge Refraction Office/outpatient Visit, Est No Charge [facility] Fundus Photos 023 Eye Exam & Treatment Corneal Topography No Charge [facility] Fundus Photos 021 Office/outpatient Visit, Est No Charge [facility] Fundus Photos 020 Corneal Topography Eye Exam & Treatment No Charge [facility] Fundus Photos 019 Refraction Eye Exam & Treatment No Charge Refraction Fundus Photography W/ Report Eye Exam & Treatment Eye Exam & Treatment No Charge Refraction Fundus Photography W/ Report Office/outpatient Visit, Est Eye Exam & Treatment Certified EMR Eye Exam & Treatment Refraction Office/outpatient Visit, Est Eye Exam & Treatment Eye Exam & Treatment Eye Exam Established Pt Eye Exam & Treatment Eye Exam Established Pt Eye Exam Established Pt Advance Directives Directive Yes / No Effective Date File Name Other Directive No N/A N/A WARNING:The information contained in this section is historical and is provided for information only and does not constitute a legal document or any assurance that the information is still accurate. Please verify the information with the yin of the legal document before using it for clinical purposes. Encounters Encounter Description Practice Location Reason(s) For Visit Diagnoses Date Provider Providers Copied on Encounter Office/outpa tient Visit, Est [facility], [email or web address], [place], [place], [address], [place] tel:[phone] SEC Silverio MAYUR Professional Cataract evaluation (chief complaint) Peripheral pterygium, stationary, left eyeCombined forms of age-related cataract, bilateralH/O malignant neoplasm of eye Sep- 4 Chilo Alcantara. Formerly [facility] [address], [address], [place], [place], [address], [place]. tel:[phone] Specialist : Hugo Valera MD, [address] [facility] 13th [address], [place], [address] . tel:[phone] erring Provider: Quinton Gutiérrez, [facility] [address], [place], [address] . tel:[phone] [facility], Formerly [facility] [address], [place], [place], [address], [place] tel:[phone] SEC [place] No Information Aug- 4 Chilo Alcantara. Formerly [facility] [address], [address], [place], [place], [address], [place]. tel:[phone] Office/outpa tient Visit, Est [facility] [employer] [facility] [employer] [facility], [facility] [address], [place], [place], [address], [place] tel:[phone] SEC [place] MAYUR Professional Cataract evaluation (chief complaint) Combined forms of age-related cataract, left eyeAge-relate d nuclear cataract, right eyeCarcinoma in situ of right eyeUnspecifie d pterygium of left eye Apr- 4 Chilo Alcantara. [facility] [address], [address], [place], [place], [address], [place]. tel:[phone] Referring Provider: Quinton Gutiérrez, [facility] [address], [place], [address] . tel:[phone] [facility] Park[facility] HospitalI [employer] [facility], [facility] [address], [place], [place], [address], [place] tel:[phone] SEC Silver[place] Professional Cataract evaluation (chief complaint) H/O malignant neoplasm of eyeCombined forms of age-related cataract, left eyeAge-relate d nuclear cataract, right eyeKeratitis siccaPeripher al pterygium, stationary, left eye Jonas- 3 Chiloalhaji Alcantara. [facility] [address], [address], [place], [place], [address], [place]. tel:[phone] Referring Provider: Quinton Gutiérrez, [address], [place], [address] . tel:[phone] Office/outpa tient Visit, [facility] [employer] [facility], [facility] [address], [place], [place], [address], [place] tel:[phone] SEC Henrietta Frye Complete Exam (chief complaint) Age-related nuclear cataract, bilateralPeri pheral pterygium, stationary, left eye Jul- 1 Chiloalhaji Alcantara. [facility] [address], [address], [place], [place], [address], [place]. tel:[phone] Referring Provider: Quinton Gutiérrez, [address], [place], [address] . tel:[phone] [employer] [facility], [address], [place], [place], [address], [place] tel:[phone] SEC [place] Professional Complete Exam (chief complaint) Age-related nuclear cataract, bilateralH/O malignant neoplasm of eyePeripheral pterygium, stationary, left eye 0 Chilo Quinton. [facility] [address], [address], [place], [place], [address], [place]. tel:[phone] Referring Provider: Quinton Gutiérrez, [address], [place], [address] . tel:[phone] [employer] [facility], [facility] [address], [place], [place], [address], [place] tel:[phone] SEC [place] Professional No Information 0 [place] Alcant[place]. [facility] [address], [address], [place], [place], [address], [place]. tel:[phone] [facility] CenterAriad[facility], [facility] [email or web address], [place], [place], [address], tel:[phone] SEC [place] Professional Complete Exam (chief complaint) Age-related nuclear cataract, bilateralPeri pheral pterygium, stationary, left eyeH/O malignant neoplasm of eye 9 Chilo Quinton. [facility] [address], [address], [place], [place], [address], [place]. tel:[phone] Referring Provider: Quinton Gutiérrez, [facility] [address], [place], [address] . tel:[phone] [employer] T[employer] [facility], [facility] [address], [place], [place], [address], [phone] SEC Silverio MAYUR Professional Blurry vision (chief complaint) Age-related nuclear cataract, bilateralFloa ters, bilateralPter ygium of both eyes 6 Chiloalhaji Alcantara. [facility] [address], [address], [place], [place], [address], [place]. tel:[phone] Referring Provider: Quinton Gutiérrez, [facility] [address], [place], [address] . tel:[phone] [employer] [place]A[facility] [facility], [id number], [place], [place], [address], [place] tel:[phone] SEC [place] blurry vision (chief complaint) SENILE NUCLEAR CATARACTVITRE OUS OPACITIES NEC 4 Chiloalhaji Alcantara. [facility] [address], [address], [place], [place], [address], [place]. tel:[phone] Referring Provider: Quinton Gutiérrez, [address], [place], [address] . tel:[phone] Office/outpa tient Visit, Est [facility], [address] [place] [address] [address], [place], [place], [address], [place] tel:[phone] SEC [place] N [place] VITREOUS OPACITIES NEC Oct- 3 [place] Quinton. [address] [place] [address] [employer] [facility], [address], [place], [place], [address], [place]. tel:[phone] [facility], [address] [place] [address] [address], [place], [place], [address], [place] tel:[phone] SEC [place] MAYUR Professional SENILE NUCLEAR CATARACTPTERY GIUM NOSCONJUNCTIV AL CYSTS Oct- 2 Chilo Quinton. [address] [place] [address] [employer] [facility], [address], [place], [place], [address], [place]. tel:[phone] [facility], [address] [place] [address] [address], [place], [place], [address], [place] tel:[phone] SEC [place] No Information 2 1 Chilo Quinton. [address] [place] [address] [employer] [facility], [address], [place], [place], [address], [place]. tel:[phone] [facility], [address] [place] [address] [address], [place], [place], [address], [place] tel:[phone] SEC [place] No Information May-0 1 [place] Quinton. [address] [place] [address] [employer] [facility], [address], [place], [place], [address], [place]. tel:[phone] Office/outpa tient Visit, [facility], [address] [place] [address] [address], [place], [place], [address], [place] tel:[phone] SEC [place] No Information Oct-1 1-201 0 [place]inton. [address], [address], [place], [place], [address], [place]. tel:[phone] [facility], [address], [place], [place], [address], [place] tel:[phone] SEC [place] No Information Mar-2 9-201 0 [place]. [address], [address], [place], [place], [address], [place]. tel:[phone] [facility], [address], [place], [place], [address], [place] tel:[phone] SEC [place] No Information Mar-2 3-200 9 Chilo Quinton. [facility] [address], [address], [place], [place], [address], [place]. tel:[phone] [facility] ParkTrans[facility] Corporation [facility], [address], [place], [place], [address], [place] tel:[phone] SEC [place] No Information Sep-1 5-200 8 [place]. [facility] [address], [address], [place], [place], [address], [place]. tel:[phone] [facility], [address], [place], [place], [address], [place] tel:[phone] SEC [place] No Information Mar-1 0-200 8 [place]. [address], [address], [place], [place], [address], [place]. tel:[phone] [facility], [address], [place], [place], [address], [place] tel:[phone] SEC [place] No Information Sep-1 0-200 7 [place]. [address], [address], [place], [place], [address], [place]. tel:[phone] [facility], [address], [place], [place], [address], tel:[phone] SEC Henrietta Frye No Information Apr- 5-200 7 Chilo Alcantara. [address], [address], [place], [place], [address], [place]. tel:[phone] Family History Family Member Type Diagnosis Age At Onset Problem (finding) Family history of Retin al disease Mother Problem (finding) degenerative disorder o f macula Payers Payer name Insurance type Covered libertarian ID Authoriza tion(s) [employer] Mdcr Gold Adv Prime CI [id number] Social History Type Description Quantity Date Captured Comments Alcohol Use Details No Caffeine Use Details Tobacco Use Status Current non-smoker Smoking Status Never smoker Non-Smoking Tobacco Use Details : No Details Available : No Details Available Sex Male Chief Complaint And Reason For Visit From encounter dated '11/08/2023 12:45'. Cataract evaluation (chief complaint). Description: The 78 year old patient presents for a 6 month cataract check ou. Patient denies any changes in vision ou. Patient states he is bothered by glare around lights at night. Patient is a Type II diabetic and BS was 140 this am. Reason For Referral Reason For Referral No Information Plan Of Treatment Date Type Action Status Patient Education Cataracts: Care Instruc tions completed Patient Education Cataracts: Care Instruc tions completed Patient Education Cataracts: Care Instruc tions completed History Of Present Illness Encounter Date Complaint History Of Prese nt Illness Cataract evaluation The 78 year old patient presents for a 6 month cataract check ou. Patient denies any changes in vision ou. Patient states he is bothered by glare around lights at night. Patient is a Type II diabetic and BS was 140 this am. Cataract evaluation The 78 year old patient presents for evaluation of Cataract evaluation in the right eye and left eye. Pt. feels are vision is stable in both eyes at distance and near. Pt. states his dryness needs controlled with using the Restasis ou bid. Cataract evaluation The 77 year old patient presents for a cataract evaluation. Patient is using Restasis bid ou from [facility]. Patient really doesn't have any VA complaints at this time. Patient does not want to have to drive to [place] any longer to see Dr. Mandujano. Complete Exam The 75 year old male presents for evaluation of Complete Exam in the right eye and left eye. Hx of Pterygium OS, Cataracts OU, and Malignant of eye. Patient takes VA is not always crystal clear with VA. Complete Exam The 74 year old male presents for evaluation of Complete Exam in the right eye and left eye. Hx of Pterygium OS, mild cataracts OU, and Malignant neoplasm of eye. Patient denies any changes with VA. Patient states last week he was cutting grass and got something in right but went away during the night. Patient declines a new rx for glasses states he is doing well. Does not want to consider cataract sx at this time. Complete Exam The 73 year old male presents for evaluation of Complete Exam in the right eye and left eye. Hx of Pterygium OU and Mild Cataracts OU. Patient states when he goes outside in the cold the right eye tears a lot. Blurry vision The 70 year old male presents for a complete exam to monitor cataracts OU, pterygium OU, and conj cysts OD. Patient denies any pain or discomfort at this time, states v/a is stable, no gtts are used at this time. blurry vision The 68 year old male presents for Complete Exam. HX Cataracts OU, Pterygium OU, and Conj cysts OD. Pt states he has more problems night driving and watching TV. Reading seems stable if he takes his glasses off.Patient has therapy for back pain. He had an injection about 1 month ago and is getting an epidural next week. 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 for Complete Exam. Impression/Plan - Di scussed diagnosis in detail with patient. Cataracts are cause of decreased vision. Recommend glasses for driving. Patient has a pair of distance glasses at home. No change in Pterygium OU will continue to monitor. Instructed pt to call office if glare increases and elects CE. Return to clinic in 1 year for complete exam or sooner with any problems. Floaters, bilateral - Educational material provided Related to Floaters, bilateral - 1 yr complete Related to See l ist of assessments above - OU: Discussed diag nosis in detail with patient. No treatment is required at this time. Will continue to observe condition and or symptoms. Call if VA worsens. Related to See list of assessments above - 1 yr complete Related to See i mpression: general plan General plan -VITREO US OPACITIES NEC No signs of Ocular trauma from herbicide. - Discussed diagnosis in detail with patient. No treatment is required at this time. Advised patient of condition. Will continue to observe condition and or symptoms. Call if VA worsens. Educational materials provided:Flashers/floaters. Related to See impression: general plan Pterygium, OU - esta blished, stable - will continue to monitor - Discussed diagnosis in detail with patient. No treatment is required at this time. Will continue to observe condition and or symptoms. Related to Pterygium - 1 yr complete exam Related to Cataract, Nuclear Sclerosis CONJUNCTIVAL CYSTS, OD - vision not affected - will continue to monitor - discussed dx with pt, and association with allergy Related to CONJUNCTIVAL CYSTS Cataract, Nuclear Sc lerosis, OU - established, stable - vision affected - will continue to monitor - Discussed cataract diagnosis with the patient. Discussed and reviewed treatment options for cataracts. No treatment is required at this time. Will continue to observe condition and symptoms. Call if vision gets worse. Related to Cataract, Nuclear Sclerosis Assessments Type Assessment Date assessment Peripheral pterygium, stationary , left eye assessment Combined forms of age-related ca taract, bilateral assessment H/O malignant neoplasm of eye Se p-10-2024 Patient Care Teams Name Effective Dates (start - stop) Status Members No Information
[2024-08-29 20:01] VITALS: BP 135/91; PULSE 84; RESP 14; TEMP 36.6; O2SAT 97
--- NOTE | 2024-08-29 20:14 | ED_ITS ---
HPI - Trauma General Chief Complaint: Trauma Stated Complaint: fall, facial trauma Time Seen by Provider: 08/29/24 20:01 Source: patient Mode of arrival: ambulatory Limitations: no limitations History of Present Illness HPI narrative: This is a 79-year-old male that presents to the emergency department after a fall today with head injury. Reports he was leaning forward and accidentally fell and hit his head. He did not lose consciousness. Reports he takes clopidogrel. He also sustained an injury to the right 5th finger. Denies vision changes, vomiting, numbness, weakness. Related Data Home Medications ?Medication ?Instructions ?Recorded ?Confirmed ?Last Taken ?Type aspirin 81 mg chewable tablet 81 mg PO DAILY 04/15/19 08/16/23 06/12/20 History cholecalciferol (vitamin D3) 25 1,000 unit PO DAILY 04/15/19 08/16/23 06/12/20 History mcg (1,000 unit) tablet (Vitamin D3) acetaminophen 325 mg tablet 650 mg PO Q6H 04/23/19 08/16/23 06/16/20 05:30 History atorvastatin 40 mg tablet 40 mg PO QAM 06/05/20 08/16/23 06/15/20 History diphenhydramine HCl 25 mg capsule 25 mg PO QHS PRN 01/20/22 08/16/23 Unknown History (Benadryl) metoprolol succinate 25 mg 50 mg PO DAILY 07/27/22 08/16/23 Unknown History tablet,extended release 24 hr dapagliflozin propanediol 10 mg 10 mg PO QAM 02/14/23 08/16/23 Unknown History tablet (Farxiga) primidone 50 mg tablet 50 mg PO QHS 02/14/23 08/16/23 Unknown History Allergies Allergy/AdvReac Type Severity Reaction Status Date / Time Penicillins Allergy Unknown N/V? Verified 08/16/23 09:56 levofloxacin (From Levaquin) AdvReac Intermediate Cramping Verified 08/16/23 09:56 of the Muscles Review of Systems Review of Systems: All systems reviewed & are unremarkable except as noted in HPI and below [facility] Past Medical History Medical History Allergies Asbestos exposure BMI 27.0-27.9,adult Bundle branch block Right Cancer of cornea Chemo eyedrops Carotid stenosis, right Dilated cardiomyopathy DM2 (diabetes mellitus, type 2) First degree AV block History of tremor HTN (hypertension) Kidney stones He passed on his own Melena Rectal polyp Polypectomy Seasonal allergies Surgical History Surgical History H/O cardiac catheterization 2009 the EF of 40-45% minimal luminal irregularities H/O nasal septoplasty Repair of left eye socket with a tube place H/O rectal polypectomy Hx of appendectomy Hx of tonsillectomy Status post arthroscopic surgery of left knee Family History Family History Mother Family history of Alzheimer's disease Father Family history of heart disease in male family member before age 55 Asbestos exposure Cancer Sibling No problems noted. Social History Social History Social History: The patient is a full code and his Mini is his durable power book cutter for healthcare. Patient has 2 children. He is retired from working in the [employer] a [employer]. Smoking status: Never smoker Second hand tobacco smoke exposure: No Alcohol intake: current Alcohol use details: STATES MAYBE 1-2 DRINKS/YEAR Substance use: current Other substance usage details: CBD at night Last use: 04/14/2019 Lack of Transportation: No Lack of Food: Never True Current Housing: I Have Housing Concerned About Future Housing: No Difficulty Paying Gas/Electric Bills: No Difficulty Paying for Meds: No Currently Unemployed: No Education: Trade/Vocational Certificate Difficulty w/ Childcare or Family Care: No Living arrangements: with family Occupation/Education: retired Additional occupation/education comments: [employer] Gender identity (if verbalized by the patient): Male Spiritual care concerns: No Agree to blood products: Yes Exam Narrative: GENERAL: Well-appearing, well-nourished, and in no acute distress. HEAD: Normocephalic. Scattered abrasions on the face EYES: PERRLA and EOMI. ENT: Nares clear, no rhinorrhea or epistaxis. Mucous membranes moist. Oropharynx without tonsillar hypertrophy exudate or other lesions. Bilateral TMs pearly rothman non-bulging NECK: Supple. No adenopathy or masses. CHEST: Clear to auscultation. No respiratory distress. No wheezes rales or rhonchi HEART: Regular rate and rhythm. No murmur heard. Normal peripheral pulses. EXTREMITIES: Normal range of motion, except decreased active range of motion in the right 5th finger with obvious deformity. No edema. Strength equal in bilateral upper and lower extremities (5/5) SKIN: Warm, dry, no rash. NEURO: No focal deficits. Alert and oriented x3. Cranial nerves 2-12 grossly intact PSYCH: Normal mood and affect Course Vital Signs Vital signs: Vital Signs Temperature 98 F 08/29/24 20:01 Pulse Rate 84 08/29/24 20:01 Respiratory Rate 14 08/29/24 20:01 Blood Pressure 135/91 H 08/29/24 20:01 Pulse Oximetry 97 08/29/24 20:01 Oxygen Delivery Room Air 08/29/24 20:01 Temperature 98 F 08/29/24 20:01 Pulse Rate 84 08/29/24 20:01 Respiratory Rate 14 08/29/24 20:01 Blood Pressure 135/91 H 08/29/24 20:01 Pulse Oximetry 97 08/29/24 20:01 Oxygen Delivery Room Air 08/29/24 20:01 Procedures Orthopedic Joint Reduction Joint #1: Orthopedic Joint Reduction Date: 08/29/24 Side: right Joint Reduction Location: finger Analgesia: hematoma block Pre-Procedure Neuro Vascular Exam: normal Local Anesthesia: lidocaine 1% Amount of anesthesic used (mL): 2 Technique used: direct manipulation Post-reduction neuro exam: intact Post-reduction vascular: intact Post Reduction X-Ray Obtained: Yes Post Reduction X-Ray Results: reduced Splint Applied: Yes Patient Tolerated Procedure: well and no complications MDM - Trauma MDM Narrative Medical decision making narrative: Patient presents to the ER for a fall today with head injury. He is neurologically intact. CT brain and cervical spine without acute findings. CT facial bone shows old nasal bone fracture. Patient also with dislocation of the right 5th finger. This was successfully reduced. He was updated on his workup and agrees with plan of care. He is to follow up with primary provider and hand surgery. He was given warnings to return to the ER Differential Diagnosis Differential diagnosis: Likely fracture of face bones (concussion, subdural hematoma, finger dislocation, finger fracture) Imaging Data Radiologist's impression: ITS Impressions Finger X-Ray 08/29/24 20:33 IMPRESSION: Posterior and medial dislocation of the proximal interphalangeal joint. No definite fractures. Head CT 08/29/24 20:51 IMPRESSION: No acute intracranial findings. Finger X-Ray 08/29/24 21:08 IMPRESSION: No acute osseous abnormality. Head/Cervical Spine/Facial Bones CT 08/29/24 21:21 IMPRESSION: No acute osseous abnormality cervical spine. CT facial & cervical spine wo Ordering provider: Brenda Ndiaye PA-C History: . fall . Comparison: None. Technique: Thin slice axial CT of the facial bones was performed without contrast. Coronal and sagittal reformatted images were also obtained. . Automated exposure control and iterative reconstruction technique were employed. The dose-length product was 434.24 mGy-cm. FINDINGS: PARANASAL SINUSES: Bilateral maxillary and ethmoidal sinus disease. BONES: Fracture nasal bones which is most likely old. Clinical evaluation advised. ORBITS AND SUPERFICIAL SOFT TISSUES: The optic globes and orbits are normal. The superficial soft tissues are normal. VISUALIZED MASTOIDS: Well aerated. LIMITED VISUALIZED BRAIN PARENCHYMA: Normal. IMPRESSION: Bilateral nasal bone fracture which is most likely chronic. Clinical correlation advised. Critical Care Time Critical Care Time Critical Care Time: No Discharge Plan Discharge Clinical Impression: Head injury Qualifiers: Encounter type: initial encounter Qualified Code(s): S09.90XA - Unspecified injury of head, initial encounter Dislocated finger Qualifiers: Encounter type: initial encounter Qualified Code(s): S63.259A - Unspecified dislocation of unspecified finger, initial encounter Patient Disposition: Home Condition: Stable Instructions: Head Injury (ED), Finger Dislocation (ED) Additional Instructions: Return to the emergency department if you experience fever, chest pain, shortness of breath, abdominal pain with nausea and vomiting, weakness, numbness, or any other symptoms that are concerning to you. Wear splint. Ice to the area. Nlsk-hal-lmbqbei pain medication as needed. Prescribed pain medication as needed Follow up with Hand surgery (Dr. Rodriguez) Patient Language: [place] Islander Prescriptions: New hydrocodone-acetaminophen 5-325 mg tablet 1 tablet PO Q8H PRN (Reason: pain) Qty: 10 0RF No Action primidone 50 mg tablet 50 mg PO QHS metoprolol succinate 25 mg tablet extended release 24 hr 50 mg PO DAILY acetaminophen 325 mg tablet 650 mg PO Q6H diphenhydramine HCl [Benadryl] 25 mg capsule 25 mg PO QHS PRN Farxiga 10 mg tablet 10 mg PO QAM aspirin 81 mg Tablet,Chewable 81 mg PO DAILY cholecalciferol (vitamin D3) [Vitamin D3] 25 mcg (1,000 unit) Tablet 1,000 unit PO DAILY atorvastatin 40 mg tablet 40 mg PO QAM clopidogrel [Plavix] 75 mg tablet 75 mg PO DAILY Qty: 30 3RF lisinopril 20 mg tablet 20 mg PO DAILY Qty: 90 3RF Follow-up/Referrals: George Rodriguez MD [Physician] - Kulwinder Fitzpatrick DO [Physician] -
[2024-08-29] MEDS: LIDOCAINE 1% LOCAL INJ 10 ML VIAL INFILTRATE (20:54)
--- OUTSIDE RECORDS SUMMARY | 2024-08-29 21:02 | XMS_ITS | Encounter Summary ---
Author Organization [facility] Address [address] [place] [address] Care Team Providers Care Floor Care Technician Name Role Phone Jacky Childress MD Primary Care Provider [phone] Jan Vizcarra MD Unavailable [phone] Encounter Details Date Type Department Care Team (Late st Contact Info) Description 11/11/2018 Ophth Exam [facility] [address] [place] [address] Barbie Mims MD No info available Social History Tobacco Use Types Packs/Day Years Used Date Smoking Tobacco: Never Smokeless Tobacco: Never Alcohol Use Standard Drinks/Week Comments No 0 (1 standard drink = 0.6 oz pur e alcohol) Sex and Gender Information Value Date Recorded Sex Assigned at Not on file 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 Gender Identity Not on file Sexual Orientation Not on file Occupation Industry Job Start Date Job End Date RETIRED Not on file Not on file Not on file documented as of this encounter Plan of Treatment Not on file documented as of this encounter Visit Diagnoses Not on filedocumented in this encounter Care Teams Floor Care Technician Relationship Specialty Start Date End Date Jacky Childress MD [address] [place] [address] PCP - General Family Medicine 01/14/15 [place] [address] [place] [address] Orthopedic Surgery 02/13/15 documented as of this encounter
--- OUTSIDE RECORDS SUMMARY | 2024-08-29 21:02 | XMS_ITS | Continuity of Care Document ---
Author Organization [facility] Address [address] [place] [address] Phone Care Team Providers Care Photovoltaic Testing Technician Name Role Phone Hugo Monk MD Unavailable [...] Diagnoses Date Provider Providers Copied on Encounter [facility], [address] [address], [place], [address], [place] tel:[phone] [facility] Primary osteoarthritis of left knee 9 Aleshia Arias. [address] [place] [address], [id number] . tel: [phone] [facility], [address] [place] [address], [place], [address], [place] tel:[phone] [facility] Primary osteoarthritis of left knee 9 Aleshia Arias. [address] [place] [address], [id number] . tel: [phone] [facility], [address] [place] [address], [place], [address], [place] tel:[phone] [facility] Blood tests prior to treatment or procedure 9 Aleshia Arias. [address] [place] [address], [id number] . tel: [phone] [facility], [address] [place] [address], [address], [place] tel:[phone] [facility] Complex tear of medial meniscus, current injury, left knee, initial encounter 9 Aleshia Arias. [address] [place] [address], [id number] . tel: [phone] OFFICE/OUTPAT IENT VISIT EST [facility], [address] [place] [address], [place], [address], [place] tel:[phone] [facility] Primary osteoarthritis of left knee May-0 9 Parker Colvin. [address], [place], [place], [id number] . tel: [phone] OFFICE/OUTPAT IENT VISIT EST [facility], [address] [place] [address] [address], [place], [address], [place] tel:[phone] [facility] Primary osteoarthritis of left knee 9 Parker Colvin. [address], [place], [place], [id number] . tel: [phone] OFFICE/OUTPAT IENT VISIT EST [facility], [address] [place] [address], [address], [place] tel:[phone] [facility] Arthralgia of lumbar spineSpondylos is of lumbosacral region without myelopathy or radiculopathy 7 Alexandru Luther. [address] [place], [place], [id number] . tel: [phone] OFFICE/OUTPAT IENT VISIT [facility], [address] [place] [address], [address], [place] [phone] [facility] Arthralgia of lumbar spinePrimary osteoarthritis of lumbar spine Fe 7 Alexandru Luther. [address] [place] [address], [id number] . tel: [phone] [facility], [address] [place] [address], [address], [place] tel:[phone] [facility] Primary osteoarthritis of lumbar spineArthralgi a of lumbar spine 7 Alexandru Luther. [address] [place] [address], [id number] . tel: [phone] Referring Provider: Ashkan Horvath, [address] [place] [address], [id number] . tel:[phone] [facility], [address] [place] [address], [address], [place] [phone] [facility] No Information 6 Alexandru Luther. [address] [place] [address], [id number] . tel: [phone] OFFICE/OUTPAT IENT VISIT EST [facility], [address] [place] [address], [address], [place] tel:[phone] [facility] Arthralgia of lumbar spinePrimary osteoarthritis of lumbar spine 6 Alexnadru Guerreroel. [address] [place] [address], [id number] . tel:[phone] OFFICE/OUTPAT IENT VISIT [facility], [address] [place] [address], [address], tel:[phone] [facility] low back pain (chief complaint) Arthralgia of lumbar spinePrimary osteoarthritis of lumbar spine 6 Alexandru Luther. [address] [place] [address], [id number] . tel:[phone] Referring Provider: Santana Chaudhary, [address] [place] [address], [id number] . tel:[phone] OFFICE CONSULTATION [facility], [address] [place] [address], [address], tel:[phone] [facility] lumbar (chief complaint) Degeneration of lumbosacral intervertebral disc 6 Eusebia Dillon. [address] [place] [address], [id number] . tel:[phone] Referring Provider: Hugo Castellanos, [address] [place] [address], [id number] . tel:[phone] Family History Family Member Type Diagnosis Age At Onset Son Problem (finding) Alive and well Brother Problem (finding) Alive and well Payers Payer name Insurance type Covered libertarian ID Authoriza tion(s) [facility] Group Medicare Advantage OT [id number] Social History Type Description Quantity Date Captured [...] Future Order: Lab Order CBC w/di ff ([id number]), Ordered on: Ordered Future Order: Lab Order Comprehe nsive Metabolic Panel ([id number]), Ordered on: Ordered History Of Present Illness Encounter Date Complaint History Of Prese nt Illness low back pain lumbar Functional Status Date Functional Assessmen t No Information Instructions Date Instruction Additional Infor mation Apply ice as instructed. Related to Primary osteoarthritis of left knee Activity as tolerated. Related t o Primary osteoarthritis of left knee Apply ice as instructed. Related to Primary osteoarthritis of left knee Activity as tolerated. Related t o Primary osteoarthritis of left knee Activity as tolerated. Related t o Primary osteoarthritis of left knee Avoid prolonged bed rest. Relate d to Arthralgia of lumbar spine Activity as tolerated. Related t o Arthralgia of lumbar spine Activity as tolerated. Related t o Degeneration of lumbosacral intervertebral disc Avoid prolonged bed rest. Relate d to Degeneration of lumbosacral intervertebral disc Take medication as prescribed. R elated to Degeneration of lumbosacral intervertebral disc Assessments Type Assessment Date assessment Primary osteoarthritis of left k nee Patient Care Teams Name Effective Dates (start - stop) Status Members No Information
--- OUTSIDE RECORDS SUMMARY | 2024-08-29 21:02 | XMS_ITS | Clinical Summary ---
Author Organization [employer] [address] Address [address] [place] [address] Care Team Providers Care Courtesy Clerk Name Role Phone Unavailable Primary Care Provider [...] Data STL ABSTRACTION Provider, Abstract 08/02/2024 Telephone [facility] [address] [place] [address] Kwame To PA-C Clinical Consult [...] Description 11/21/2024 11:40 AM CDT Office Visit [facility] [address] [place] [id number] Kwame To PA-C [address] [place] [address] Health Maintenance Due Date Last [...] 04/10/2024, INFLUENZA VACCINE Completed 11/29/2023, 11/28/2019 Insurance [facility]
--- OUTSIDE RECORDS SUMMARY | 2024-08-29 21:02 | XMS_ITS | Clinical Summary ---
Author Organization [facility] Address [address] [place] [address] Care Team Providers Care Campaign Manager Name Role Phone Jacky Childress MD Primary Care Provider [phone] Jan Vizcarra MD Unavailable [phone] Source Comments [facility],non-owned Affiliates and Associated Physician Practices is amultiple site organization consisting of ambulatory clinics and hospital sitesin [place], [place], [place] and [place]. This disclosure is being madepursuant to the Care Everywhere program and may not contain all information available regarding this patient. 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
--- OUTSIDE RECORDS SUMMARY | 2024-08-29 21:02 | XMS_ITS | Clinical Summary ---
Author Organization [facility] Address [address] [place] [address] Care Team Providers Care Personal Care Worker Name Role Phone Kwame To Primary Care [...] Department Care Team Description 06/28/2024 Orders Only [facility] [address] [facility] [place] [address] Leandra Anderson NP 06/28/2024 Telephone [facility] [address] [facility] [place] [address] Leandra Anderson, YANA Med Refill from Last [...] on file Legal Sex Male 9:18 PM LICENSE EXAMINER Gender Identity Male 07/13/2018 10:16 AM CDT Sexual Orientation Not on file Occupation Industry Job Start Date Job End Date Retired Not on file Not on file Not on file Obstetrics History Last Filed Vital Signs Vital Sign Reading Time Taken Comments Blood Pressure 118/72 04/10/2024 11:34 AM LICENSE EXAMINER Pulse 94 04/10/2024 11:34 AM LICENSE EXAMINER Temperature 36.3 C (97.3 F) 03/31/2020 9:28 AM LICENSE EXAMINER Respiratory Rate 17 07/04/2019 8:38 AM CDT Oxygen Saturation 96% 04/10/2024 11:34 AM LICENSE EXAMINER Inhaled Oxygen Concentration - - Weight 84.4 kg (186 lb) 04/10/2024 11:34 AM LICENSE EXAMINER Height 175.3 cm (5' 9) 04/10/2024 11:34 AM LICENSE EXAMINER Body Mass Index 27.47 04/10/2024 11:34 AM LICENSE EXAMINER Plan of Treatment Health Maintenance Due Date [...] HEMOGLOBIN A1C Routine 04/10/2024 1 1:53 AM LICENSE EXAMINER Type 2 diabetes mellitus without complication, without long-term current use of insulin (HCC) POCT LIPID PANEL Routine 03/03/2022 3:00 PM LICENSE EXAMINER Type 2 diabetes mellitus without complication, without long-term current use of insulin (HCC) Mixed hyperlipidemia COMPREHENSIVE METABOLIC PANEL Routine 05/20/2020 11:34 AM CDT Type 2 diabetes mellitus without complication, without long-term current use of insulin (HCC) Hypertension associated with diabetes (HCC) Mixed hyperlipidemia from Last 3 Months or Most Recently Relevant to Health Maintenance Results * POCT hemoglobin A1c (04/10/2024 11:53 AM LICENSE EXAMINER) Hemoglobin A1C, POC 8.3 4.0 - 5.6 % Blood 04/10/2024 11:5 3 AM LICENSE EXAMINER Hugo Valera MD POINT OF CARE TEST ORDER ZENON Final Result * POCT lipid panel (03/03/2022 3:00 PM LICENSE EXAMINER) Cholesterol, POC <100 mg/dL HDL, POC 399 mg/dL Triglycerides, POC 117 mg/dL LDL Cholesterol POC n/a mg/dL Chol/HDL Ratio, POC n/a Non-HDL Cholesterol, POC n/aa mg/dL Capillary blood 03/03/2022 3 :00 PM LICENSE EXAMINER Hugo Valera MD POINT OF CARE TEST ORDER ZENON Final Result * (ABNORMAL) Comprehensive metabolic panel (05/20/2020 11:34 AM CDT) [facility] Glucose 156(H) 65 - 99 mg/dL [...] - 05/21/2020 6:10 AM CDT Performed at: [address] [place] [id number] Drop Wire Stringer: Prosper Martino PhD, Phone: [phone] Hugo Valera MD LAB BLOOD ORDERABLES Fin al Result [facility] - 01 from Last 3 Months or Most Recently Relevant to Health Maintenance Insurance [facility] MEDICARE [facility] MEDICARE [facility] MEDICARE [employer] MEDICARE Care Teams Personal Care Worker Relationship Specialty Start Date End Date Kwame To PA [address] [facility] [address] [place] [address] PCP - General Physician [employer] Consultant 03/03/22
--- OUTSIDE RECORDS SUMMARY | 2024-08-29 21:02 | XMS_ITS | Continuity of Care Document ---
Author Organization [facility] [place] Address [address] [place] [address] Phone Care Team Providers Care Interventional Radiologist Name Role Phone Chilo PINA FACS, Quinton [...] Copied on Encounter Office/outpa tient Visit, Est Formerly [facility], [address], [place], [place], [address], [place] tel:[phone] SEC Silverio MAYUR Professional Cataract evaluation (chief complaint) Peripheral pterygium, stationary, left eyeCombined forms of age-related cataract, bilateralH/O malignant neoplasm of eye Sep- 4 Chilo Alcantara. [facility] [address], [address], [place], [place], [address], [place]. tel:[phone] Specialist : Hugo Valera MD, [address] 13th [address], [place], [address] . tel:[phone] erring Provider: Quinton Gutiérrez, [facility] [address], [place], [address] . tel:[phone] [facility], [facility] [employer] [address], [place], [place], [address], [place] tel:[phone] [place] No Information Aug- 4 Chilo Alcantara. [facility] [address], [address], [place], [place], [address], [place]. tel:[phone] Office/outpa tient Visit, Est Formerly [facility] [employer] [facility], [facility] [address], [place], [place], [address], [place] tel:[phone] SEC [place] MAYUR Professional Cataract evaluation (chief complaint) Combined forms of age-related cataract, left eyeAge-relate d nuclear cataract, right eyeCarcinoma in situ of right eyeUnspecifie d pterygium of left eye Apr- 4 Chilo Alcantara. [facility] [address], [address], [place], [place], [address], [place]. tel:[phone] Referring Provider: Quinton Gutiérrez, [facility] [address], [place], [address] . tel:[phone] [facility], [facility] [address], [place], [place], [address], [place] tel:[phone] SEC Silverio [place] Professional Cataract evaluation (chief complaint) H/O malignant neoplasm of eyeCombined forms of age-related cataract, left eyeAge-relate d nuclear cataract, right eyeKeratitis siccaPeripher al pterygium, stationary, left eye Jonas- 3 Chiloalhaji Alcantara. [facility] [address], [address], [place], [place], [address], [place]. tel:[phone] Referring Provider: Quinton Gutiérrez, [address], [place], [address] . tel:[phone] Office/outpa tient Visit, [facility] [employer] [facility], [facility] [address], [place], [place], [address], [place] tel:[phone] SEC Henrietta Frye Complete Exam (chief complaint) Age-related nuclear cataract, bilateralPeri pheral pterygium, stationary, left eye Jul- 1 Chiloalhaji Alcantara. [facility] [address], [address], [place], [place], [address], [place]. tel:[phone] Referring Provider: Quinton Gutiérrez, [address], [place], [address] . tel:[phone] [employer] [facility], [address], [place], [place], [address], [place] tel:[phone] SEC [place] Professional Complete Exam (chief complaint) Age-related nuclear cataract, bilateralH/O malignant neoplasm of eyePeripheral pterygium, stationary, left eye 0 Chilo Quinton. [facility] [address], [address], [place], [place], [address], [place]. tel:[phone] Referring Provider: Quinton Gutiérrez, [address], [place], [address] . tel:[phone] [employer] [facility], [facility] [address], [place], [place], [address], [place] tel:[phone] SEC Silver[place] Professional No Information 0 Toledoalhaji Alcantara. [facility] [address], [address], [place], [place], [address], [place]. tel:[phone] [facility], [facility] [employer] [address], [place], [place], [address], tel:[phone] SEC [place] Professional Complete Exam (chief complaint) Age-related nuclear cataract, bilateralPeri pheral pterygium, stationary, left eyeH/O malignant neoplasm of eye 9 Chilo Quinton. [facility] [address], [address], [place], [place], [address], [place]. tel:[phone] Referring Provider: Quinton Gutiérrez, [facility] [address], [place], [address] . tel:[phone] [employer] [facility], [facility] [address], [place], [place], [address], [phone] SEC Silverio MAYUR Professional Blurry vision (chief complaint) Age-related nuclear cataract, bilateralFloa ters, bilateralPter ygium of both eyes 6 Chiloalhaji Alcantara. [facility] [address], [address], [place], [place], [address], [place]. tel:[phone] Referring Provider: Quinton Gutiérrez, [facility] [address], [place], [address] . tel:[phone] Fyusion DeridderSpace Monkey [facility], [address], [place], [place], [address], [place] tel:[phone] SEC [place] blurry vision (chief complaint) SENILE NUCLEAR CATARACTVITRE OUS OPACITIES NEC 4 Chiloalhaji Alcantara. [facility] [address], [address], [place], [place], [address], [place]. tel:[phone] Referring Provider: Quinton Gutiérrez, [address], [place], [address] . tel:[phone] Office/outpa tient Visit, Est [facility], [address] [place] [address] [address], [place], [place], [address], [place] tel:[phone] SEC [place] VITREOUS OPACITIES NEC Oct- 3 Tol[place] Quinton. [address] [place] [address] [facility], [address], [place], [place], [address], [place]. tel:[phone] [facility], [address] [place] [address] [address], [place], [place], [address], [place] tel:[phone] SEC [place] MAYUR Professional SENILE NUCLEAR CATARACTPTERY GIUM NOSCONJUNCTIV AL CYSTS Oct- 2 Chilo Quinton. [address] [place] [address] [facility], [address], [place], [place], [address], [place]. tel:[phone] [facility], [address] [place] [address] [address], [place], [place], [address], [place] tel:[phone] SEC [place] No Information 2 1 Chilo Quinton. [address] [place] [address] [facility], [address], [place], [place], [address], [place]. tel:[phone] [facility], [address] [place] [address] [address], [place], [place], [address], [place] tel:[phone] SEC [place] No Information May-0 1 [place] Quinton. [address] [place] [address] [facility], [address], [place], [place], [address], [place]. tel:[phone] Office/outpa tient Visit, [facility], [address] [place] [address] [address], [place], [place], [address], [place] tel:[phone] SEC [place] No Information Oct-1 1-201 0 [place] Quinton. [address], [address], [place], [place], [address], [place]. tel:[phone] [facility], [address], [place], [place], [address], [place] tel:[phone] SEC [place] No Information Mar-2 9-201 0 [place] Quinton. [address], [address], [place], [place], [address], [place]. tel:[phone] [facility], [address], [place], [place], [address], [place] tel:[phone] SEC [place] No Information Mar-2 3-200 9 Chilo Quinton. [facility] [address], [address], [place], [place], [address], [place]. tel:[phone] [facility], [address], [place], [place], [address], [place] tel:[phone] SEC [place] No Information Sep-1 5-200 8 [place] Quinton. [facility] [address], [address], [place], [place], [address], [place]. tel:[phone] [facility], [address], [place], [place], [address], [place] tel:[phone] SEC [place] No Information Mar-1 0-200 8 [place] Quinton. [address], [address], [place], [place], [address], [place]. tel:[phone] [facility], [address], [place], [place], [address], [place] tel:[phone] SEC [place] No Information Sep-1 0-200 7 [place] Quinton. [address], [address], [place], [place], [address], [place]. tel:[phone] [facility], [address], [place], [place], [address], tel:[phone] SEC Henrietta Frye No Information Apr- 5-200 7 Chilo Alcantara. [address], [address], [place], [place], [address], [place]. tel:[phone] Family History Family Member Type Diagnosis Age At Onset Problem (finding) Family history of Retin al disease Mother Problem (finding) degenerative disorder o f macula Payers Payer name Insurance type Covered libertarian ID Authoriza tion(s) Aet[employer] Mdcr Gold Adv Prime CI [id number] Social History Type Description Quantity Date Captured [...] not want to have to drive to [place] any longer to see Dr. Mandujano. Complete [...]
--- OUTSIDE RECORDS SUMMARY | 2024-08-29 21:02 | XMS_ITS | Referral Summary ---
Author Organization [facility] Address [address] [place] [address] Care Team Providers Care Document Advisor Name Role Phone Kwame oT Primary Care Provider Encounters Date Type Department Care Team Description 06/28/2024 Orders Only [facility] [address] [place] [address] Leandra Anderson NP 06/28/2024 Telephone [facility] [address] [facility] [address] [place] [address] Leandra Anderson, YANA Med Refill [...] on file Legal Sex Male 9:18 PM BUS OPERATOR Gender Identity Male 07/13/2018 10:16 AM CDT Sexual Orientation Not on file Occupation Industry Job Start Date Job End Date Retired Not on file Not on file Not on file Last Filed Vital Signs Vital Sign Reading Time Taken Comments Blood Pressure 118/72 04/10/2024 11:34 AM BUS OPERATOR Pulse 94 04/10/2024 11:34 AM BUS OPERATOR Temperature 36.3 C (97.3 F) 03/31/2020 9:28 AM BUS OPERATOR Respiratory Rate 17 07/04/2019 8:38 AM CDT Oxygen Saturation 96% 04/10/2024 11:34 AM BUS OPERATOR Inhaled Oxygen Concentration - - Weight 84.4 kg (186 lb) 04/10/2024 11:34 AM BUS OPERATOR Height 175.3 cm (5' 9) 04/10/2024 11:34 AM BUS OPERATOR Body Mass Index 27.47 04/10/2024 11:34 AM BUS OPERATOR Plan of Treatment Not on file Procedures Procedure Name Priority Date/Time Associated Diagnosis Comments POCT HEMOGLOBIN A1C Routine 04/10/2024 1 1:53 AM BUS OPERATOR Type 2 diabetes mellitus without complication, without long-term current use of insulin (HCC) POCT LIPID PANEL Routine 03/03/2022 3:00 PM BUS OPERATOR Type 2 diabetes mellitus without complication, without long-term current use of insulin (HCC) Mixed hyperlipidemia COMPREHENSIVE METABOLIC PANEL Routine 05/20/2020 11:34 AM CDT Type 2 diabetes mellitus without complication, without long-term current use of insulin (HCC) Hypertension associated with diabetes (HCC) Mixed hyperlipidemia from Last 3 Months or Most Recently Relevant to Health Maintenance Results * POCT hemoglobin A1c (04/10/2024 11:53 AM BUS OPERATOR) Hemoglobin A1C, POC 8.3 4.0 - 5.6 % Blood 04/10/2024 11:5 3 AM BUS OPERATOR Hugo Valera MD POINT OF CARE TEST ORDER ZENON Final Result * POCT lipid panel (03/03/2022 3:00 PM BUS OPERATOR) Pathologist [facility] Cholesterol, POC <100 mg/dL HDL, POC 399 mg/dL Triglycerides, POC 117 mg/dL LDL Cholesterol POC n/a mg/dL Chol/HDL Ratio, POC n/a Non-HDL Cholesterol, POC n/aa mg/dL Capillary blood 03/03/2022 3 :00 PM BUS OPERATOR Hugo Valera MD POINT OF CARE TEST ORDER ZENON Final Result * (ABNORMAL) Comprehensive metabolic panel (05/20/2020 11:34 AM CDT) Pathologist [facility] Glucose 156(H) 65 - 99 mg/dL [facility] [...] AM CDT Performed at: 01 - [facility] [address] [id number] Identity Access Management Architect: Prosper Martino PhD, Phone: [phone] Hugo Valera MD LAB BLOOD ORDERABLES Fin al Result [facility] - 01 from Last 3 Months or Most Recently Relevant to Health Maintenance [place] [address] [facility] MEDICARE T MEDICARE AETNA MEDICARE AETNA MEDICARE Care Teams Document Advisor Relationship Specialty Start Date End Date Kwame To [place] [address] [facility] [address] [place] [address] PCP - General Physician Town Administrator 03/03/22
[2024-08-29 22:38] VITALS: BP 144/92; PULSE 79; RESP 15; O2SAT 98
== END 2024-08-29 22:50 | disposition home or self-care (01) ==
PROVIDERS: Emergency Provider Physician Assistant
DX: S00.81XA Abrasion of other part of head, initial encounter (principal); S63.286A Dislocation of proximal interphalangeal joint of right little finger, initial encounter; I42.0 Dilated cardiomyopathy; I10 Essential (primary) hypertension; E11.9 Type 2 diabetes mellitus without complications; Z87.442 Personal history of urinary calculi; Z86.0100 Personal history of colon polyps, unspecified; Z85.840 Personal history of malignant neoplasm of eye; Z79.02 Long term (current) use of antithrombotics/antiplatelets; Z79.82 Long term (current) use of aspirin; Z79.899 Other long term (current) drug therapy; W19.XXXA Unspecified fall, initial encounter
CPT/HCPCS: 26770; 70450; 70486; 72125; 73140; 99285; J2003

== ENCOUNTER 2024-09-03 13:14 | Outpatient (CLI) | payer MEDICARE, SELFPAY ==
--- NOTE | ~2024-09-03 | XR_ITS ---
Right Hand Technique: PA, oblique, and lateral views were obtained. Clinical History: Dislocation Findings: No acute fracture or dislocation is seen. Osseous alignment is anatomic. Joint spaces are p reserved. Soft tissues are unremarkable. Impression: Unremarkable right hand. Reviewed, dictated and finalized at location M. Impression: Unremarkable right hand.
--- OUTSIDE RECORDS SUMMARY | 2024-09-03 13:20 | XMS_ITS | Referral Summary ---
Author Organization [facility] Address [address] [place] [address] Care Team Providers Care Processing Engineer Name Role Phone Kwame To Primary Care Provider Encounters Date Type Department Care Team Description 06/28/2024 Orders Only [facility] [address] [place] [id number] Leandra Anderson NP 06/28/2024 Telephone [facility] [address] 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 Gender Identity Male 07/13/2018 10:16 AM CDT Sexual Orientation Not on file Occupation Industry Job Start Date Job End Date Retired Not on file Not on file Not on file Last Filed Vital Signs Vital Sign Reading Time Taken Comments Blood Pressure 118/72 04/10/2024 11:34 AM WATER PROOFER Pulse 94 04/10/2024 11:34 AM WATER PROOFER Temperature 36.3 C (97.3 F) 03/31/2020 9:28 AM WATER PROOFER Respiratory Rate 17 07/04/2019 8:38 AM CDT Oxygen Saturation 96% 04/10/2024 11:34 AM WATER PROOFER Inhaled Oxygen Concentration - - Weight 84.4 kg (186 lb) 04/10/2024 11:34 AM WATER PROOFER Height 175.3 cm (5' 9) 04/10/2024 11:34 AM WATER PROOFER Body Mass Index 27.47 04/10/2024 11:34 AM WATER PROOFER Plan of Treatment Not on file Procedures Procedure Name Priority Date/Time Associated Diagnosis Comments POCT HEMOGLOBIN A1C Routine 04/10/2024 1 1:53 AM WATER PROOFER Type 2 diabetes mellitus without complication, without long-term current use of insulin (HCC) POCT LIPID PANEL Routine 03/03/2022 3:00 PM WATER PROOFER Type 2 diabetes mellitus without complication, without long-term current use of insulin (HCC) Mixed hyperlipidemia COMPREHENSIVE METABOLIC PANEL Routine 05/20/2020 11:34 AM CDT Type 2 diabetes mellitus without complication, without long-term current use of insulin (HCC) Hypertension associated with diabetes (HCC) Mixed hyperlipidemia from Last 3 Months or Most Recently Relevant to Health Maintenance Results * POCT hemoglobin A1c (04/10/2024 11:53 AM WATER PROOFER) Hemoglobin A1C, POC 8.3 4.0 - 5.6 % Blood 04/10/2024 11:5 3 AM WATER PROOFER Hugo Valera MD POINT OF CARE TEST ORDER ZENON Final Result * POCT lipid panel (03/03/2022 3:00 PM WATER PROOFER) Pathologist [facility] Cholesterol, POC <100 mg/dL HDL, POC 399 mg/dL Triglycerides, POC 117 mg/dL LDL Cholesterol POC n/a mg/dL Chol/HDL Ratio, POC n/a Non-HDL Cholesterol, POC n/aa mg/dL Capillary blood 03/03/2022 3 :00 PM WATER PROOFER Hugo Valera MD POINT OF CARE TEST ORDER ZENON Final Result * (ABNORMAL) Comprehensive metabolic panel (05/20/2020 11:34 AM CDT) Pathologist [facility] Glucose 156(H) 65 - 99 mg/dL [facility] [...] AM CDT Performed at: 01 - [facility] [address] [id number] Automotive Buyer: Prosper Martino PhD, Phone: [phone] Hugo Valera MD LAB BLOOD ORDERABLES Fin al Result [facility] - 01 from Last 3 Months or Most Recently Relevant to Health Maintenance [place] [address] [facility] MEDICARE T MEDICARE AETNA MEDICARE AETNA MEDICARE Care Teams Processing Engineer Relationship Specialty Start Date End Date Kwame To PA [address] [facility] [address] [place] [address] PCP - General Physician Seeing Eye Dog Trainer 03/03/22
--- OUTSIDE RECORDS SUMMARY | 2024-09-03 13:20 | XMS_ITS | Continuity of Care Document ---
Author Organization [facility] Address [address] [facility] [address] [place] [address] Phone Care Team Providers Care Ross Carrier Driver Name Role Phone Chilo PINA FACS, Quinton [...] mcg sublingual lozenge once daily - Active clopidogrel 75 mg tablet take 1 tablet by oral route every day 75 MG - Active atorvastatin 40 mg tablet take 1 tablet by oral route every day 40 MG - Active primidone 50 mg tablet take 5 tablet by oral route 3 times every day 250 MG - Active Vitamin D3 25 mcg [...] Copied on Encounter Office/outpa tient Visit, [facility], [address], [place], [place], [address], [place] tel:[phone] SEC [place] MAYUR Professional Cataract evaluation (chief complaint) Peripheral pterygium, stationary, left eyeCombined forms of age-related cataract, bilateralH/O malignant neoplasm of eye Sep- 4 Chilo Alcantara. [facility] [address], [address], [place], [place], [address], [place]. tel:[phone] Specialist : Hugo Valera MD, [address] [facility] 13th [address], [place], [address] . tel:[phone] erring Provider: Quinton Gutiérrez, [facility] [address], [place], [address] . tel:[phone] [facility], [facility] [address] [address], [place], [place], [address], [place] tel:[phone] SEC [place] No Information Aug- 4 Chilo Alcantara. [facility] [address], [address], [place], [place], [address], [place]. tel:[phone] Office/outpa tient Visit, [facility], [facility] [address], [place], [place], [address], [place] tel:[phone] SEC [place] MAYUR Professional Cataract evaluation (chief complaint) Combined forms of age-related cataract, left eyeAge-relate d nuclear cataract, right eyeCarcinoma in situ of right eyeUnspecifie d pterygium of left eye Apr- 4 Chilo Alcantara. [facility] [address], [address], [place], [place], [address], [place]. tel:[phone] Referring Provider: Quinton Gutiérrez, [facility] [address], [place], [address] . tel:[phone] [facility] WayneWe[facility], [facility] [address], [place], [place], [address], [place] tel:[phone] SEC [place] Professional Cataract evaluation (chief complaint) H/O malignant neoplasm of eyeCombined forms of age-related cataract, left eyeAge-relate d nuclear cataract, right eyeKeratitis siccaPeripher al pterygium, stationary, left eye Jonas- 3 Chiloalhaji Alcantara. [facility] [address], [address], [place], [place], [address], [place]. tel:[phone] Referring Provider: Quinton Gutiérrez, [address], [place], [address] . tel:[phone] Office/outpa tient Visit, [facility] [place] [facility], [facility] [address], [place], [place], [address], [place] tel:[phone] SEC [place] Frye Complete Exam (chief complaint) Age-related nuclear cataract, bilateralPeri pheral pterygium, stationary, left eye Jul- 1 Chiloalhaji Alcantara. [facility] [address], [address], [place], [place], [address], [place]. tel:[phone] Referring Provider: Quinton Gutiérrez, [address], [place], [address] . tel:[phone] [facility], [address], [place], [place], [address], [place] tel:[phone] SEC [place] Professional Complete Exam (chief complaint) Age-related nuclear cataract, bilateralH/O malignant neoplasm of eyePeripheral pterygium, stationary, left eye 0 Chilo Quinton. [facility] [address], [address], [place], [place], [address], [place]. tel:[phone] Referring Provider: Quinton Gutiérrez, [address], [place], [address] . tel:[phone] [facility], [facility] [address], [place], [place], [address], [place] tel:[phone] SEC [place] Professional No Information 0 Vallecitosalhaji Alcantara. [facility] [address], [address], [place], [place], [address], [place]. tel:[phone] [place] [facility], [facility] [address], [place], [place], [address], tel:[phone] SEC [place] Professional Complete Exam (chief complaint) Age-related nuclear cataract, bilateralPeri pheral pterygium, stationary, left eyeH/O malignant neoplasm of eye 9 Chilo Quinton. [facility] [address], [address], [place], [place], [address], [place]. tel:[phone] Referring Provider: Quinton Gutiérrez, [facility] [address], [place], [address] . tel:[phone] [facility], [facility] [address], [place], [place], [address], [phone] SEC [place] MAYUR Professional Blurry vision (chief complaint) Age-related nuclear cataract, bilateralFloa ters, bilateralPter ygium of both eyes 6 Chiloalhaji Alcantara. [facility] [address], [address], [place], [place], [address], [place]. tel:[phone] Referring Provider: Quinton Gutiérrez, [facility] [address], [place], [address] . tel:[phone] [place] [address] [facility], [address], [place], [place], [address], [place] tel:[phone] SEC [place] blurry vision (chief complaint) SENILE NUCLEAR CATARACTVITRE OUS OPACITIES NEC 4 Chiloalhaji Alcantara. [facility] [address], [address], [place], [place], [address], [place]. tel:[phone] Referring Provider: Quinton Gutiérrez, [address], [place], [address] . tel:[phone] Office/outpa tient Visit, [facility], [address] [place] [address] [address], [place], [place], [address], [place] tel:[phone] SEC [place] VITREOUS OPACITIES NEC Oct- 3 Vallecitos Quinton. [address] [place] [address] [employer] [facility], [address], [place], [place], [address], [place]. tel:[phone] [facility], [address] [place] [address] [address], [place], [place], [address], [place] tel:[phone] SEC [place] MAYUR Professional SENILE NUCLEAR CATARACTPTERY GIUM NOSCONJUNCTIV AL CYSTS Oct- 2 Chilo Quinton. [address] [place] [address] [employer] [facility], [address], [place], [place], [address], [place]. tel:[phone] [facility], [address] [place] [address] [address], [place], [place], [address], [place] tel:[phone] SEC [place] No Information 2 1 Chilo Quinton. [address] [place] [address] [employer] [facility], [address], [place], [place], [address], [place]. tel:[phone] [facility], [address] [place] [address] [address], [place], [place], [address], [place] tel:[phone] SEC [place] No Information May-0 1 Vallecitos Quinton. [address] [place] [address] [employer] [facility], [address], [place], [place], [address], [place]. tel:[phone] Office/outpa tient Visit, [facility], [address] [place] [address] [address], [place], [place], [address], [place] tel:[phone] SEC [place] No Information Oct-1 1-201 0 Vallecitos Quinton. [address], [address], [place], [place], [address], [place]. tel:[phone] [facility], [address], [place], [place], [address], [place] tel:[phone] SEC [place] No Information Mar-2 9-201 0 Vallecitos Quinton. [address], [address], [place], [place], [address], [place]. tel:[phone] [facility], [address], [place], [place], [address], [place] tel:[phone] SEC [place] No Information Mar-2 3-200 9 Chilo Quinton. [facility] [address], [address], [place], [place], [address], [place]. tel:[phone] [facility], [address], [place], [place], [address], [place] tel:[phone] SEC [place] No Information Sep-1 5-200 8 Vallecitos Quinton. [facility] [address], [address], [place], [place], [address], [place]. tel:[phone] [facility], [address], [place], [place], [address], [place] tel:[phone] SEC [place] No Information Mar-1 0-200 8 Vallecitos Quinton. [address], [address], [place], [place], [address], [place]. tel:[phone] [facility], [address] [place] [address], [place], [place], [address], [place] tel:[phone] SEC [place] No Information Sep-1 0-200 7 Vallecitos Quinton. [address], [address], [place], [place], [address], [place]. tel:[phone] [facility], [address] [place] [address], [place], [place], [address], tel:[phone] SEC [place] Frye No Information Apr- 5-200 7 Chilo Alcantara. [address], [address], [place], [place], [address], [place]. tel:[phone] Family History Family Member Type Diagnosis Age At Onset Problem (finding) Family history of Retin al disease Mother Problem (finding) degenerative disorder o f macula Payers Payer name Insurance type Covered green party ID Authoriza tion(s) Aet[employer] Mdcr Gold Adv Prime CI [id number] Social History Type Description Quantity Date Captured [...] not want to have to drive to [place] any longer to see Dr. Mandujano. Complete [...] gardiner Impression/Plan Impression/Plan Impression/Plan Impression/Plan Impression/Plan Impression/Plan Floaters, bilateral - Educational material provided Related to Floaters, bilateral Impression/Plan - Di scussed diagnosis in detail with patient. Cataracts are cause of decreased vision. Recommend glasses for driving. Patient has a pair of distance glasses at home. No change in Pterygium OU will continue to monitor. Instructed pt to call office if glare increases and elects CE. Return to clinic in 1 year for complete exam or sooner with any problems. Follow up - Return i n 1 year with Tarun Goldsmith M.D. for Complete Exam. - OU: Discussed diag nosis in detail with patient. No treatment is required at this time. Will continue to observe condition and or symptoms. Call if VA worsens. Related to See list of assessments above - 1 yr complete Related to See l ist of assessments above General plan -VITREO US OPACITIES NEC No signs of Ocular trauma from herbicide. - Discussed diagnosis in detail with patient. No treatment is required at this time. Advised patient of condition. Will continue to observe condition and or symptoms. Call if VA worsens. Educational materials provided:Flashers/floaters. Related to See impression: general plan - 1 yr complete Related to See i mpression: general plan CONJUNCTIVAL CYSTS, OD - vision not affected [...] gets worse. Related to Cataract, Nuclear Sclerosis - 1 yr complete exam Related to Cataract, Nuclear Sclerosis Pterygium, OU - esta blished, stable - will continue to monitor - Discussed diagnosis in detail with patient. No treatment is required at this time. Will continue to observe condition and or symptoms. Related to Pterygium Assessments Type Assessment Date assessment Peripheral pterygium, stationary , left eye assessment Combined forms of age-related ca taract, bilateral assessment H/O malignant neoplasm of eye Se p-10-2024 Patient Care Teams Name Effective Dates (start - stop) Status Members No Information
--- OUTSIDE RECORDS SUMMARY | 2024-09-03 13:21 | XMS_ITS | Clinical Summary ---
Author Organization [facility] Address [address] [place] [address] Care Team Providers Care Sustainable Landscape Architect Name Role Phone Kwame To Primary Care [...] Department Care Team Description 06/28/2024 Orders Only [facility] [address] [facility] [address] [facility] [place] [address] Leandra Anderson NP 06/28/2024 Telephone [facility] [address] [facility] [address] [facility] [place] [address] Leandra Anderson, YANA Med Refill from Last [...] on file Legal Sex Male 9:18 PM SENIOR INTEGRATION DEVELOPER Gender Identity Male 07/13/2018 10:16 AM CDT Sexual Orientation Not on file Occupation Industry Job Start Date Job End Date Retired Not on file Not on file Not on file Obstetrics History Last Filed Vital Signs Vital Sign Reading Time Taken Comments Blood Pressure 118/72 04/10/2024 11:34 AM SENIOR INTEGRATION DEVELOPER Pulse 94 04/10/2024 11:34 AM SENIOR INTEGRATION DEVELOPER Temperature 36.3 C (97.3 F) 03/31/2020 9:28 AM SENIOR INTEGRATION DEVELOPER Respiratory Rate 17 07/04/2019 8:38 AM CDT Oxygen Saturation 96% 04/10/2024 11:34 AM SENIOR INTEGRATION DEVELOPER Inhaled Oxygen Concentration - - Weight 84.4 kg (186 lb) 04/10/2024 11:34 AM SENIOR INTEGRATION DEVELOPER Height 175.3 cm (5' 9) 04/10/2024 11:34 AM SENIOR INTEGRATION DEVELOPER Body Mass Index 27.47 04/10/2024 11:34 AM SENIOR INTEGRATION DEVELOPER Plan of Treatment Health Maintenance Due Date [...] HEMOGLOBIN A1C Routine 04/10/2024 1 1:53 AM SENIOR INTEGRATION DEVELOPER Type 2 diabetes mellitus without complication, without long-term current use of insulin (HCC) POCT LIPID PANEL Routine 03/03/2022 3:00 PM SENIOR INTEGRATION DEVELOPER Type 2 diabetes mellitus without complication, without long-term current use of insulin (HCC) Mixed hyperlipidemia COMPREHENSIVE METABOLIC PANEL Routine 05/20/2020 11:34 AM CDT Type 2 diabetes mellitus without complication, without long-term current use of insulin (HCC) Hypertension associated with diabetes (HCC) Mixed hyperlipidemia from Last 3 Months or Most Recently Relevant to Health Maintenance Results * POCT hemoglobin A1c (04/10/2024 11:53 AM SENIOR INTEGRATION DEVELOPER) Hemoglobin A1C, POC 8.3 4.0 - 5.6 % Blood 04/10/2024 11:5 3 AM SENIOR INTEGRATION DEVELOPER Hugo Valera MD POINT OF CARE TEST ORDER ZENON Final Result * POCT lipid panel (03/03/2022 3:00 PM SENIOR INTEGRATION DEVELOPER) Cholesterol, POC <100 mg/dL HDL, POC 399 mg/dL Triglycerides, POC 117 mg/dL LDL Cholesterol POC n/a mg/dL Chol/HDL Ratio, POC n/a Non-HDL Cholesterol, POC n/aa mg/dL Capillary blood 03/03/2022 3 :00 PM SENIOR INTEGRATION DEVELOPER Hugo Valera MD POINT OF CARE TEST ORDER ZENON Final Result * (ABNORMAL) Comprehensive metabolic panel (05/20/2020 11:34 AM CDT) [facility] Glucose 156(H) 65 - 99 mg/dL [...] - 05/21/2020 6:10 AM CDT Performed at: [address] [place] [id number] Rack Room Worker: Prosper Martino PhD, Phone: [phone] Hugo Valera MD LAB BLOOD ORDERABLES Fin al Result [facility] - 01 from Last 3 Months or Most Recently Relevant to Health Maintenance Insurance [facility] MEDICARE [facility] MEDICARE [facility] MEDICARE AETNA MEDICARE Care Teams Sustainable Landscape Architect Relationship Specialty Start Date End Date Kwame To PA [address] [facility] [address] [place] [address] PCP - General Physician High School Assistant Principal 03/03/22
--- OUTSIDE RECORDS SUMMARY | 2024-09-03 13:21 | XMS_ITS | Clinical Summary ---
Author Organization [facility] [address] Address [address] [place] [address] Care Team Providers Care Boat And Plant Utility Supervisor Name Role Phone Unavailable Primary Care Provider [...] Data STL ABSTRACTION Provider, Abstract 08/02/2024 Telephone [facility] [address] [place] [address] Kwame To PA-C Clinical Consult [...] Description 11/21/2024 11:40 AM CDT Office Visit [facility] [address] [place] [address] Kwame To PA-C [address] [place] [address] Health Maintenance Due Date Last Done Comments DIABETES ANNUAL FOOT EXAM 1963 DIABETES ANNUAL RETINAL EXAM 1963 DIABETES MICROALBUMIN ANNUAL SCREEN 1963 LDL CHOLESTEROL ANNUAL 1963 DTAP/TDAP/TD VACCINES (1 - Tdap) 1964 PNEUMOCOCCAL VACCINE 50+ YEA RS (1 of 2 - PCV) 1964 ZOSTER VACCINE (1 of 2) 1995 RSV VACCINE (60+ or ) (1 - 1-dose 75+ series) 2020 INFLUENZA VACCINE (#1) 2024 11/29/2023, 2019 DIABETES HBA1C Q 6 MONTHS 10/08/2024 04/10/2024, Insurance AETNA [facility] AETNA PPO MCR
--- OUTSIDE RECORDS SUMMARY | 2024-09-03 13:21 | XMS_ITS | Clinical Summary ---
Author Organization [facility] Address [address] [place] [address] Care Team Providers Care Corporate Wellness Coordinator Name Role Phone Jacky Childress MD Primary Care Provider Jan Vizcarra MD Unavailable Source Comments [facility],non-owned Affiliates and Associated Physician Practices is amultiple site organization consisting of ambulatory clinics and hospital sitesin [place], [place], [place] and [place]. This disclosure is being madepursuant to the Care Everywhere program and may not contain all information available regarding this patient. Last updated 17.[facility] Allergies Active Allergy Reactions Criticality Noted [...] on file Legal Sex Male 3:02 PM SPEECH LANG PATH Gender Identity Not on file Sexual Orientation [...] patient's age to complete this topic Insurance [facility] MANAGED MEDICARE ADV Care Teams Corporate Wellness Coordinator Relationship Specialty Start Date End Date Jacky Childress MD [address] [place] [address] PCP - General Family Medicine 01/14/15 [place] [address] [address] [facility] [address] [place] [address] Orthopedic Surgery 02/13/15
--- OUTSIDE RECORDS SUMMARY | 2024-09-03 13:21 | XMS_ITS | Encounter Summary ---
Author Organization [facility] Address [address] [facility] [place] [address] Care Team Providers Care Property Underwriter Name Role Phone Jacky Childress MD Primary Care Provider [phone] Jan Vizcarra MD Unavailable Encounter Details Date Type Department Care Team (Late st Contact Info) Description 11/11/2018 Ophth Exam [facility] [address] [place] [address] Barbie Mims MD No info available Social History Tobacco Use Types Packs/Day Years Used Date Smoking Tobacco: Never Smokeless Tobacco: Never Alcohol Use Standard Drinks/Week Comments No 0 (1 standard drink = 0.6 oz pur e alcohol) Sex and Gender Information Value Date Recorded Sex Assigned at Not on file Legal Sex Male 3:02 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 Gender Identity Not on file Sexual Orientation Not on file Occupation Industry Job Start Date Job End Date RETIRED Not on file Not on file Not on file documented as of this encounter Plan of Treatment Not on file documented as of this encounter Visit Diagnoses Not on filedocumented in this encounter Care Teams Property Underwriter Relationship Specialty Start Date End Date Jacky Childress MD [address] [place] [address] PCP - General Family Medicine 01/14/15 [place] [address] [place] [address] Orthopedic Surgery 02/13/15 documented as of this encounter
--- OUTSIDE RECORDS SUMMARY | 2024-09-03 13:21 | XMS_ITS | Continuity of Care Document ---
Author Organization [facility] Address [address] [place] [address] Phone Care Team Providers Care Clinic Business Manager Name Role Phone Hugo Monk MD Unavailable Unavailable Allergies, Adverse Reactions, Alerts Substance Reaction Status Criticality Penicillins Unknown Active No Information Medications Medication Instructions Dosage Effective Dates (start - stop) Status Comments hydrocodone 5 mg-acetaminophen 325 mg tablet take 1-2 tablet 1 hour prior to procedure and every 4-6 hours PRN - Active Valium 10 mg tablet take 1 tablet by oral route 1 to 2 hours prior to procedure - Active Epidiolex 100 mg/mL oral solution - Active tramadol 50 mg tablet take 1 tablet by oral route every day - Active Aspirin Low Dose 81 mg tablet,delayed release take 1 tablet by oral route every day 81 MG - Active propranolol ER 80 mg capsule,24 hr,extended release take 1/2 capsule by oral route every day - Active Mobic 15 mg tablet take 1 tablet by oral route every day - Active LISINOPRIL (unknown strength) Not Available [...] Diagnoses Date Provider Providers Copied on Encounter [facility], [address] [address], [place], [address], [place] tel:[phone] [facility]oarthritis of left knee 9 Aleshia Arias. [address] [place] [address], [id number] . tel: [phone] [facility], [address] [place] [address], [place], [address], [place] tel:[phone] [facility] Primary osteoarthritis of left knee 9 Aleshia Arias. [address] [place] [address], [id number] . tel: [phone] [facility], [address] [place] [address], [place], [address], [place] tel:[phone] [facility] Blood tests prior to treatment or procedure 9 Aleshia Arias. [address] [place] [address], [id number] . tel: [phone] [facility], [address] [place] [address], [address], [place] tel:[phone] [facility] Complex tear of medial meniscus, current injury, left knee, initial encounter 9 Aleshia Arias. [address] [place] [address], [id number] . tel: [phone] OFFICE/OUTPAT IENT VISIT EST [facility], [address] [place] [address], [place], [address], [place] tel:[phone] [facility] Primary osteoarthritis of left knee May-0 9 Parker Colvin. [address], [place], [place], [id number] . tel: [phone] OFFICE/OUTPAT IENT VISIT EST [facility], [address] [place] [address] [address], [place], [address], [place] tel:[phone] [facility] Primary osteoarthritis of left knee 9 Parker Colvin. [address], [place], [place], [id number] . tel: [phone] OFFICE/OUTPAT IENT VISIT EST [facility], [address] [place] [address], [address], [place] tel:[phone] [facility] Arthralgia of lumbar spineSpondylos is of lumbosacral region without myelopathy or radiculopathy 7 Alexandru Luther. [address] [place], [place], [id number] . tel: [phone] OFFICE/OUTPAT IENT VISIT [facility], [address] [place] [address], [address], [place] [phone] [facility] Arthralgia of lumbar spinePrimary osteoarthritis of lumbar spine Fe 7 Alexandru Luther. [address] [place] [address], [id number] . tel: [phone] [facility], [address] [place] [address], [address], [place] tel:[phone] [facility] Primary osteoarthritis of lumbar spineArthralgi a of lumbar spine 7 Alexandru Luther. [address] [place] [address], [id number] . tel: [phone] Referring Provider: Ashkan Horvath, [address] [place] [address], [id number] . tel:[phone] [facility], [address] [place] [address], [address], [place] [phone] [facility] No Information 6 Alexandru Luther. [address] [place] [address], [id number] . tel: [phone] OFFICE/OUTPAT IENT VISIT EST [facility], [address] [place] [address], [address], [place] tel:[phone] [facility] Arthralgia of lumbar spinePrimary osteoarthritis of lumbar spine 6 Alexandru Guerreroel. [address] [place] [address], [id number] . tel:[phone] OFFICE/OUTPAT IENT VISIT [facility], [address] [place] [address], [address], tel:[phone] [facility] low back pain (chief complaint) Arthralgia of lumbar spinePrimary osteoarthritis of lumbar spine 6 Alexandru Luther. [address] [place] [address], [id number] . tel:[phone] Referring Provider: Santana Chaudhary, [address] [place] [address], [id number] . tel:[phone] OFFICE CONSULTATION [facility], [address] [place] [address], [address], tel:[phone] [facility] lumbar (chief complaint) Degeneration of lumbosacral intervertebral disc 6 Eusebia Dillon. [address] [place] [address], [id number] . tel:[phone] Referring Provider: Hugo Castellanos, [address] [place] [address], [id number] . tel:[phone] Family History Family Member Type Diagnosis Age At Onset Son Problem (finding) Alive and well Brother Problem (finding) Alive and well Payers Payer name Insurance type Covered libertarian ID Authoriza tion(s) [facility] Group Medicare Advantage [place] [id number] Social History Type Description Quantity Date Captured [...] Future Order: Lab Order CBC w/di ff ([id number]), Ordered on: Ordered Future Order: Lab Order Comprehe nsive Metabolic Panel ([id number]), Ordered on: Ordered History Of Present Illness [...]
== END 2024-09-03 13:15 | disposition home or self-care (01) ==
PROVIDERS: Visit Provider Plastic Surgery
DX: S63.259A Unspecified dislocation of unspecified finger, initial encounter (principal); X58.XXXA Exposure to other specified factors, initial encounter
CPT/HCPCS: 73130